=== PATIENT | male | born 1980 | race African-American/Black ===

== ENCOUNTER 2018-01-03 19:25 | Emergency (ER) | payer MEDICAID, OTHER ==
[~2018-01-03] VITALS: Ht 177.8 cm; Wt 70.0 kg
[~2018-01-03 19:25] MED LIST: BENZ1TAB PO; HALO10 PO; HALO100P IM; QUET300 PO; RISP0.5T2 PO; RISP4TAB41 PO; SERO100T PO; Z.0.NO CURRENT MEDS
[2018-01-03 19:44] VITALS: BP 183/102; PULSE 82; RESP 18; TEMP 99.1; O2SAT 100
== END 2018-01-03 21:10 | disposition left against medical advice (07) ==
LOC: NED 19:25
DX: F99 Mental disorder, not otherwise specified (principal)
CPT/HCPCS: 99281

== ENCOUNTER 2018-01-04 02:05 | Emergency (ER) | payer SELFPAY ==
[~2018-01-04] VITALS: Ht 160 cm; Wt 65.0 kg
[2018-01-04 02:09] VITALS: BP 152/85; PULSE 85; RESP 16; TEMP 97.8; O2SAT 98
== END 2018-01-04 05:05 | disposition left against medical advice (07) ==
LOC: NED 02:05
DX: Z00.8 Encounter for other general examination (principal); Z53.21 Procedure and treatment not carried out due to patient leaving prior to being seen by health care provider
CPT/HCPCS: 99281

== ENCOUNTER 2018-01-05 12:36 | Emergency (ER) | payer OTHER ==
--- NOTE | 2018-01-05 14:28 | PD ---
HPI Chief Complaint: Psychiatric Symptoms Time Seen by Provider: 14:03 Travel History International Travel<30 days: No Contact w/Intl Traveler<30days: No Traveled to known affect area: No History of Present Illness HPI 37-year-old male with history of schizophrenia presents to the emergency room under a Peck act initiated by physician at an outside hospital for agitation. Patient denies suicidal or homicidal ideations at this time. Denies hallucinations or delusions. Denies any medical complaints. According to Peck act, patient became agitated at [facility] and was transferred here. He had CBC and CMP performed at [facility] that is unremarkable except for very mild anemia and hypokalemia. PFSH Past Medical History Arthritis: No Asthma: No Autoimmune Disease: No Anxiety: No Depression: No Heart Rhythm Problems: No Cancer: No Cardiovascular Problems: Yes High Cholesterol: No Chemotherapy: No Chest Pain: No Congestive Heart Failure: No COPD: No Cerebrovascular Accident: No Diabetes: No Diminished Hearing: No Endocrine: No GERD: No Genitourinary: No Hiatal Hernia: No Immune Disorder: No Kidney Stones: No Musculoskeletal: No Neurologic: No Psychiatric: Yes (CURRENTLY GETS HALDOL DEC SHOT Q 4 WEEKS) Reproductive: No Respiratory: No Migraines: No Radiation Therapy: No Renal Failure: Yes Schizophrenia: Yes Seizures: No Sickle Cell Disease: No Sleep Apnea: No Thyroid Disease: No Ulcer: No Past Surgical History Abdominal Surgery: No AICD: No Arteriovenous Shunt: No Cardiac Surgery: No Ear Surgery: No Endocrine Surgery: No Eye Surgery: No Genitourinary Surgery: No Gynecologic Surgery: No Insulin Pump: No Joint Replacement: No Oral Surgery: No Pacemaker: No Thoracic Surgery: No Social History Alcohol Use: Yes (STATES RARELY) Tobacco Use: Yes (4 PER DAY) Substance Use: Yes (POT) Allergies-Medications (Allergen,Severity, Reaction): Coded Allergies: haloperidol (Unverified Allergy, Severe, Hallucinations, 01/04/18) ibuprofen (Unverified Allergy, Intermediate, Itching, 01/04/18) Reported Meds & Prescriptions Reported Meds & Active Scripts Active Quetiapine Fumarate 300 Mg Tab 300 Mg PO HS Reported Risperdal (Risperidone) 0.5 Mg Tab 0.5 Mg PO HS Seroquel 100 mg (Quetiapine Fumarate) 100 Mg Tab 100 Mg PO DAILY Cogentin (Benztropine Mesylate) 1 Mg Tab 1 Mg PO BID Haldol (Haloperidol) 10 Mg Tab 10 Mg PO HS Haldol (Decanoate) 100 mg Ampule (Haloperidol Decanoate) 100 Mg/Ml Inj 100 Mg IM Q28D No Current Meds (Miscellaneous Medication) Misc Risperdal (Risperidone) 4 Mg Tab 4 Mg PO HS Review of Systems Except as stated in HPI: all other systems reviewed are Neg Physical Exam Narrative GENERAL: Well-nourished, well-developed male in no acute distress. Afebrile. Ambulatory. SKIN: Focused skin assessment warm/dry. HEAD: Normocephalic. EYES: No scleral icterus. No injection or drainage. NECK: Supple, trachea midline. No JVD or lymphadenopathy. CARDIOVASCULAR: Regular rate and rhythm without murmurs, gallops, or rubs. RESPIRATORY: Breath sounds equal bilaterally. No accessory muscle use. PSYCHIATRIC: No delusional thought processes. No hallucinations. Normal affect. Calm, cooperative. Data Data Last Documented VS Vital Signs Date Time Temp Pulse Resp B/P (MAP) Pulse Ox O2 Delivery O2 Flow Rate FiO2 01/05/18 15:10 98.0 61 16 134/81 (98) 100 Room Air Orders Orders Psych Screen (01/05/18 14:03) Drug Screen, Random Urine (01/05/18 14:03) Diet Regular Basic (01/05/18 Dinner) Ed Discharge Order (01/05/18 18:19) Labs Laboratory Tests Test 01/05/18 17:04 Urine Opiates Screen NEG Urine Barbiturates Screen NEG Urine Amphetamines Screen NEG Urine Benzodiazepines Screen NEG Urine Cocaine Screen POS Urine Cannabinoids Screen POS [facility] Medical Decision Making Medical Screen Exam Complete: Yes Emergency Medical Condition: Yes Medical Record Reviewed: Yes Differential Diagnosis Adjustment disorder, depression, malingering, medication refill, psychosis Narrative Course 37-year-old male with history of schizophrenia presents to the emergency room requesting that occasion refill of Zoloft. Patient was placed under a Peck act at [facility] for agitation. He is calm and cooperative on exam. Denies any medical complaints. Denies homicidal or suicidal ideation. States he just wants Zoloft filled. He had labs performed at [facility] that are unremarkable. Drug screen is ordered and pending. Vital signs stable. Patient is medically cleared for psychiatric evaluation. 01/05/2018 1830: Patient is medically cleared and will be transferred to [facility] for psychiatric evaluation. Diagnosis Primary Impression: Medical clearance for psychiatric admission Referrals: [facility] (Out patient) Additional Instructions: Follow-up per psychiatrist's recommendations. Disposition: 01 DISCHARGE HOME Condition: Stable Chio Vega Jan 05, 2018 14:28
[2018-01-05 15:10] VITALS: BP 134/81; PULSE 61; RESP 16; TEMP 98; O2SAT 100
== END 2018-01-05 19:31 ==
LOC: NEPJ 12:36
DX: F20.9 Schizophrenia, unspecified (principal); F17.200 Nicotine dependence, unspecified, uncomplicated; Z79.899 Other long term (current) drug therapy
CPT/HCPCS: 80307; 99285

== ENCOUNTER 2018-01-08 15:26 | Emergency (ER) | payer SELFPAY ==
[~2018-01-08] VITALS: Ht 172.7 cm; Wt 70.0 kg
[2018-01-08 16:39] VITALS: BP 140/85; PULSE 82; RESP 16; TEMP 98.4; O2SAT 99
== END 2018-01-08 20:27 | disposition left against medical advice (07) ==
LOC: NED 15:26
DX: Z03.89 Encounter for observation for other suspected diseases and conditions ruled out (principal)
CPT/HCPCS: 99281

== ENCOUNTER 2018-01-09 02:27 | Emergency (ER) | payer SELFPAY ==
[~2018-01-09] VITALS: Ht 185.4 cm; Wt 85.0 kg
[2018-01-09 02:46] VITALS: BP 160/78; PULSE 70; RESP 16; TEMP 97.4; O2SAT 100
--- NOTE | 2018-01-09 04:06 | PD ---
HPI Chief Complaint: Hypertension Time Seen by Provider: 03:45 Travel History International Travel<30 days: No Contact w/Intl Traveler<30days: No Traveled to known affect area: No History of Present Illness HPI Patient is a 37-year-old male with a history of schizoaffective disorder presents emergency department for evaluation of elevated blood pressure. Patient states been taking his blood pressure at home has been asymptomatic and thinks he might need blood pressure pills. He has not discussed this with his primary care physician and she does not have a regular primary care physician. He denies any chest pain shortness of breath abdominal pain nausea vomiting diarrhea. On my initial evaluation patient sleeping soundly in a prone position in the ER stretcher, easily awoken. Duration of symptoms is unknown, severity is moderate, associated signs and symptoms and context as above. PFSH Past Medical History Arthritis: No Asthma: No Autoimmune Disease: No Anxiety: No Depression: No Heart Rhythm Problems: No Cancer: No Cardiovascular Problems: Yes High Cholesterol: No Chemotherapy: No Chest Pain: No Congestive Heart Failure: No COPD: No Cerebrovascular Accident: No Diabetes: No Diminished Hearing: No Endocrine: No GERD: No Genitourinary: No Hiatal Hernia: No Immune Disorder: No Kidney Stones: No Musculoskeletal: No Neurologic: No Psychiatric: Yes (CURRENTLY GETS HALDOL DEC SHOT Q 4 WEEKS) Reproductive: No Respiratory: No Migraines: No Radiation Therapy: No Renal Failure: Yes Schizophrenia: Yes Seizures: No Sickle Cell Disease: No Sleep Apnea: No Thyroid Disease: No Ulcer: No Tetanus Vaccination: Unknown Influenza Vaccination: No Past Surgical History Surgical History: No Previous Surgery Abdominal Surgery: No AICD: No Arteriovenous Shunt: No Cardiac Surgery: No Ear Surgery: No Endocrine Surgery: No Eye Surgery: No Genitourinary Surgery: No Gynecologic Surgery: No Insulin Pump: No Joint Replacement: No Oral Surgery: No Pacemaker: No Thoracic Surgery: No Social History Alcohol Use: Yes (STATES RARELY) Tobacco Use: Yes (4 PER DAY) Substance Use: Yes Allergies-Medications (Allergen,Severity, Reaction): Coded Allergies: haloperidol (Unverified Allergy, Severe, Hallucinations, 01/12/18) ibuprofen (Unverified Allergy, Intermediate, Itching, 01/12/18) Reported Meds & Prescriptions Reported Meds & Active Scripts Active Quetiapine Fumarate 300 Mg Tab 300 Mg PO HS Reported Risperdal (Risperidone) 0.5 Mg Tab 0.5 Mg PO HS Seroquel 100 mg (Quetiapine Fumarate) 100 Mg Tab 100 Mg PO DAILY Cogentin (Benztropine Mesylate) 1 Mg Tab 1 Mg PO BID Haldol (Haloperidol) 10 Mg Tab 10 Mg PO HS Haldol (Decanoate) 100 mg Ampule (Haloperidol Decanoate) 100 Mg/Ml Inj 100 Mg IM Q28D No Current Meds (Miscellaneous Medication) Misc Risperdal (Risperidone) 4 Mg Tab 4 Mg PO HS Review of Systems Except as stated in HPI: all other systems reviewed are Neg Physical Exam Narrative GENERAL: Well-developed well-nourished in no obvious distress SKIN: Focused skin assessment warm/dry. HEAD: Atraumatic. Normocephalic. EYES: Pupils equal and round. No scleral icterus. No injection or drainage. ENT: No nasal bleeding or discharge. Mucous membranes pink and moist. NECK: Trachea midline. No JVD. CARDIOVASCULAR: Regular rate and rhythm. No murmur appreciated. RESPIRATORY: No accessory muscle use. Clear to auscultation. Breath sounds equal bilaterally. GASTROINTESTINAL: Abdomen soft, non-tender, nondistended. Hepatic and splenic margins not palpable. MUSCULOSKELETAL: No obvious deformities. No clubbing. No cyanosis. No edema. NEUROLOGICAL: Awake and alert. No obvious cranial nerve deficits. Motor grossly within normal limits. Normal speech. PSYCHIATRIC: Somewhat flat affect, normal mood. Denies suicidal or homicidal ideation. Somewhat withdrawn but provides his own history peer Data Data Last Documented VS Orders Orders Ed Discharge Order (01/09/18 04:06) MDM Medical Decision Making Medical Screen Exam Complete: Yes Emergency Medical Condition: Yes Differential Diagnosis Asymptomatic elevated blood pressure, hypertensive emergency unlikely, hypertensive urgency unlikely Narrative Course Patient room to the emergency department, moderately elevated blood pressure 160 /78, no symptoms to suggest organ failure, there is no indication further workup of this patient this time. Discussed need follow-up with his daily health clinic. He is stable for discharge Diagnosis Primary Impression: Asymptomatic hypertension Referrals: [facility] Disposition: 01 DISCHARGE HOME Condition: Stable Gregorio Van MD Jan 09, 2018 04:06
== END 2018-01-09 04:42 | disposition home or self-care (01) ==
LOC: NEPE 02:27
DX: I10 Essential (primary) hypertension (principal); F25.9 Schizoaffective disorder, unspecified; N19 Unspecified kidney failure; F20.9 Schizophrenia, unspecified; F17.200 Nicotine dependence, unspecified, uncomplicated; Z79.899 Other long term (current) drug therapy; Z88.6 Allergy status to analgesic agent; Z88.8 Allergy status to other drugs, medicaments and biological substances
CPT/HCPCS: 99281

== ENCOUNTER 2018-01-10 11:45 | Emergency (ER) | payer SELFPAY ==
[~2018-01-10] VITALS: Ht 188 cm; Wt 80.0 kg
[2018-01-10 12:00] VITALS: BP 152/99; PULSE 83; RESP 20; TEMP 97.3; O2SAT 100
--- NOTE | 2018-01-10 13:17 | PD ---
HPI Chief Complaint: Injury Time Seen by Provider: 13:02 Travel History International Travel<30 days: No Contact w/Intl Traveler<30days: No Traveled to known affect area: No History of Present Illness HPI 37 year old male presents to the emergency department complaining of pain to the top of his right foot that started today because "I walked too much". Patient denies any injury. Patient is verbally abusive throughout my exam. Patient states that his pain is 10/10 and he needs an Kamran bandage and ibuprofen. He has not tried anything [id number] for his pain. Patient denies any exacerbating or alleviating factors. Mild severity. History Past Medical Histgory Hx Cancer: No Hx Chemotherapy: No Hx Radiation Therapy: No Social History Alcohol Use: Yes (STATES RARELY) Tobacco Use: Yes (4 PER DAY) Allergies-Medications (Allergen,Severity, Reaction): Coded Allergies: haloperidol (Unverified Allergy, Severe, Hallucinations, 01/10/18) ibuprofen (Unverified Allergy, Intermediate, Itching, 01/10/18) Reported Meds & Prescriptions Reported Meds & Active Scripts Active Quetiapine Fumarate 300 Mg Tab 300 Mg PO HS Reported Risperdal (Risperidone) 0.5 Mg Tab 0.5 Mg PO HS Seroquel 100 mg (Quetiapine Fumarate) 100 Mg Tab 100 Mg PO DAILY Cogentin (Benztropine Mesylate) 1 Mg Tab 1 Mg PO BID Haldol (Haloperidol) 10 Mg Tab 10 Mg PO HS Haldol (Decanoate) 100 mg Ampule (Haloperidol Decanoate) 100 Mg/Ml Inj 100 Mg IM Q28D No Current Meds (Miscellaneous Medication) Misc Risperdal (Risperidone) 4 Mg Tab 4 Mg PO HS Review of Systems Except as stated in HPI: all other systems reviewed are Neg Physical Exam Exam Limitations: Uncooperative Narrative GENERAL: Well-nourished, well-developed male patient, afebrile. SKIN: Focused skin assessment warm/dry. No erythema or warmth. No swelling or abnormality to the right foot. HEAD: Normocephalic. Atraumatic. EYES: No scleral icterus. No injection or drainage. NECK: Supple, trachea midline. No JVD or lymphadenopathy. CARDIOVASCULAR: Right pedal pulse 2+. RESPIRATORY: No accessory muscle use. MUSCULOSKELETAL: No cyanosis, or edema. Data Data Last Documented VS Vital Signs Date Time Temp Pulse Resp B/P (MAP) Pulse Ox O2 Delivery O2 Flow Rate FiO2 01/10/18 12:00 97.3 83 20 152/99 (116) 100 MDM Medical Screen Exam Complete: Yes Emergency Medical Condition: No Differential Diagnosis muscle strain Narrative Course 37-year-old male presents to the emergency department for evaluation of right foot pain from "walking too much". He denies any injury. No abnormality is found on exam. He has no tenderness to palpation. Patient is a very verbally abusive throughout my exam, calling me an "ugly bitch". The patient becomes agitated and leaves when I told him that a financial counselor would come speak to him. A medical screening exam was performed: At the time of evaluation the presenting medical condition was determined not to be of an emergent nature. The patient was given the option of receiving additional care, but declined. Patient was given options for additional community resources from which to obtain care. The Patient Has Been advised to seek medical attention for their presenting complaint. The patient has been advised to return to the ER at any time if an emergent condition develops. Primary Impression: Encounter for medical screening examination Condition: Stable Aaliyah Rand Jan 10, 2018 13:17
== END 2018-01-10 13:17 | disposition left against medical advice (07) ==
LOC: NEPD 11:45
DX: M79.671 Pain in right foot (principal)
CPT/HCPCS: 99281

== ENCOUNTER 2018-01-12 22:33 | Emergency (ER) | payer SELFPAY ==
[~2018-01-12] VITALS: Ht 185.4 cm; Wt 80.0 kg
[2018-01-12 23:51] VITALS: BP 163/93; PULSE 100; RESP 16; TEMP 98.4; O2SAT 99
--- NOTE | 2018-01-13 00:27 | RADRPT ---
EXAM DATE/TIME: 01/13/2018 00:18 [facility] COMPARISON: No previous studies available for comparison. INDICATIONS : Chest pain. MEDICAL HISTORY : None. SURGICAL HISTORY : None. ENCOUNTER: Initial ACUITY: 1 day PAIN SCORE: 0/10 LOCATION: Bilateral chest FINDINGS: PA and lateral views of the chest demonstrate the lungs to be symmetrically aerated without evidence of mass, infiltrate or effusion. The cardiomediastinal contours are unremarkable. Osseous structure s are intact. CONCLUSION: No acute cardiopulmonary disease. Raghav Russell MD on January 13, 2018 at 0:26 Board Certified Radiologist. This report was verified electronically.
[2018-01-13 00:30] LABS: BASOPHIL % 0.4 % (0.0-2.0); EOSINOPHIL # 0.2 TH/MM3 (0-0.4); EOSINOPHIL % 3.7 % (0.0-4.0); HEMATOCRIT 31.1 % (39.0-51.0); HEMOGLOBIN 10.8 GM/DL (13.0-17.0); LYMPH % 43.5 % (9.0-44.0); LYMPHOCYTE # 2.1 TH/MM3 (1.0-4.8); MEAN CELL VOLUME 87.7 FL (80.0-100.0); MEAN CORPUSCULAR HEMOGLOBIN 30.5 PG (27.0-34.0); MEAN CORPUSCULAR HGB CONC 34.8 % (32.0-36.0); MEAN PLATELET VOLUME 7.6 FL (7.0-11.0); MONO % 10.2 % (0.0-8.0); MONOCYTE # 0.5 TH/MM3 (0-0.9); NEUT % 42.2 % (16.0-70.0); PLATELET COUNT 288 TH/MM3 (150-450); RED BLOOD COUNT 3.55 MIL/MM3 (4.50-5.90); RED CELL DISTRIBUTION WIDTH 14.4 % (11.6-17.2); WHITE BLOOD COUNT 4.7 TH/MM3 (4.0-11.0)
[2018-01-13 00:50] LABS: BICARBONATE 25.8 MEQ/L (21.0-32.0); BLOOD UREA NITROGEN 12 MG/DL (7-18); CALCIUM 8.5 MG/DL (8.5-10.1); CHLORIDE 111 MEQ/L (98-107); CREATININE 0.85 MG/DL (0.60-1.30); GLOMERULAR FILTRATION RATE 124 ML/MIN (>89); GLUCOSE,RANDOM 110 MG/DL (74-106); SODIUM (NA) 144 MEQ/L (136-145)
[2018-01-13 01:04] LABS: TROPONIN I LESS THAN 0.02 NG/ML (0.02-0.05)
--- NOTE | 2018-01-13 20:33 | EKG ---
Date Performed: 01/13/2018 Time Performed: 00:04:42 PTAGE: 37 years EKG: Sinus rhythm WITH SINUS ARRHYTHMIA WITH SHORT OK INTERVAL MODERATE VOLTAGE CRITERIA FOR LVH, CONSIDER NORMAL VARI ANT MODERATE T-WAVE ABNORMALITY, CONSIDER ANTERIOR ISCHEMIA ABNORMAL ECG PREVIOUS TRACING : 12/04/2016 10.29 Since the previous tracing, T wave abnormalities are new DOCTOR: Dmitry Ortiz Interpretating Date/Time 01/13/2018 20:31:53
== END 2018-01-13 08:32 | disposition left against medical advice (07) ==
LOC: NED 22:33
DX: R07.9 Chest pain, unspecified (principal)
CPT/HCPCS: 71046; 80048; 82550; 82552; 84484; 85025; 93005; 99281

== ENCOUNTER 2018-01-18 10:16 | Emergency (ER) | payer SELFPAY ==
[2018-01-18 11:34] VITALS: BP 175/104; PULSE 70; RESP 16; TEMP 98.5; O2SAT 97
--- NOTE | 2018-01-18 11:42 | PD ---
HPI Chief Complaint: Medical Clearance Time Seen by Provider: 11:34 Travel History International Travel<30 days: No Contact w/Intl Traveler<30days: No Traveled to known affect area: No History of Present Illness HPI 37-year-old male presents emergency department requesting his blood pressure to be checked. Has no history of hypertension. Has no chest pain or tightness. No difficulty breathing. No headache or blurred vision. No focal deficits weakness. No other symptoms to report. PFSH Past Medical History Arthritis: No Asthma: No Autoimmune Disease: No Anxiety: No Depression: No Heart Rhythm Problems: No Cancer: No Cardiovascular Problems: Yes High Cholesterol: No Chemotherapy: No Chest Pain: No Congestive Heart Failure: No COPD: No Cerebrovascular Accident: No Diabetes: No Diminished Hearing: No Endocrine: No GERD: No Genitourinary: No Hiatal Hernia: No Immune Disorder: No Kidney Stones: No Musculoskeletal: No Neurologic: No Psychiatric: Yes (CURRENTLY GETS HALDOL DEC SHOT Q 4 WEEKS) Reproductive: No Respiratory: No Migraines: No Radiation Therapy: No Renal Failure: Yes Schizophrenia: Yes Seizures: No Sickle Cell Disease: No Sleep Apnea: No Thyroid Disease: No Ulcer: No Past Surgical History Abdominal Surgery: No AICD: No Arteriovenous Shunt: No Cardiac Surgery: No Ear Surgery: No Endocrine Surgery: No Eye Surgery: No Genitourinary Surgery: No Gynecologic Surgery: No Insulin Pump: No Joint Replacement: No Oral Surgery: No Pacemaker: No Thoracic Surgery: No Social History Alcohol Use: Yes (STATES RARELY) Tobacco Use: Yes (4 PER DAY) Substance Use: Yes (pt states no drugs or ETOH for 2 months) Allergies-Medications (Allergen,Severity, Reaction): Coded Allergies: haloperidol (Unverified Allergy, Severe, Hallucinations, 01/12/18) ibuprofen (Unverified Allergy, Intermediate, Itching, 01/12/18) Reported Meds & Prescriptions Reported Meds & Active Scripts Active Quetiapine Fumarate 300 Mg Tab 300 Mg PO HS Reported Risperdal (Risperidone) 0.5 Mg Tab 0.5 Mg PO HS Seroquel 100 mg (Quetiapine Fumarate) 100 Mg Tab 100 Mg PO DAILY Cogentin (Benztropine Mesylate) 1 Mg Tab 1 Mg PO BID Haldol (Haloperidol) 10 Mg Tab 10 Mg PO HS Haldol (Decanoate) 100 mg Ampule (Haloperidol Decanoate) 100 Mg/Ml Inj 100 Mg IM Q28D No Current Meds (Miscellaneous Medication) Misc Risperdal (Risperidone) 4 Mg Tab 4 Mg PO HS Review of Systems Except as stated in HPI: all other systems reviewed are Neg Physical Exam Narrative This is a 37-year-old male with a bizarre affect but appears nontoxic and in no acute distress. He is ambulatory with a non-ataxic gait. He has even respirations. Normal heart rate. Moves all extremities. Speaks to me clearly. Data Data Last Documented VS Vital Signs Date Time Temp Pulse Resp B/P (MAP) Pulse Ox O2 Delivery O2 Flow Rate FiO2 01/18/18 11:34 98.5 70 16 175/104 (127) 97 MDM Medical Decision Making Medical Screen Exam Complete: Yes Emergency Medical Condition: Yes Medical Record Reviewed: Yes Differential Diagnosis Normal examination versus hypertension versus electrolyte abnormality versus psychiatric etiology Narrative Course 37-year-old male presents emergency department to have his blood pressure checked. Following vital signs, prior to being able to discharge the patient, he does not want to have anything to do with it and chooses to leave. AMA: The risks of leaving against medical advice without further evaluation treatment were discussed with the patient. These risks include cardiac dysfunction, cardiac dysrhythmia, possible heart attack, possible stroke or . The patient indicated understanding of these risks and appeared to have the capacity to make this decision. Diagnosis Primary Impression: Blood pressure check Disposition: 07 AGAINST MEDICAL ADVICE Condition: Stable Janie Oliveira RUDY Jan 18, 2018 11:42
== END 2018-01-18 19:14 | disposition left against medical advice (07) ==
LOC: NED 10:16
DX: Z00.00 Encounter for general adult medical examination without abnormal findings (principal)
CPT/HCPCS: 99281

== ENCOUNTER 2018-01-20 21:52 | Emergency (ER) | payer SELFPAY ==
[~2018-01-20] VITALS: Ht 182.9 cm; Wt 73.0 kg
[2018-01-20 22:55] VITALS: BP 173/107; PULSE 68; RESP 18; TEMP 98.2; O2SAT 100
--- NOTE | 2018-01-21 02:29 | PD ---
HPI Chief Complaint: Injury Time Seen by Provider: 01:20 Travel History International Travel<30 days: No Contact w/Intl Traveler<30days: No Traveled to known affect area: No History of Present Illness HPI 37-year-old male complains of right ankle pain. He played basketball today and suffered a hyperinversion injury. Ambulation has been painful. No other injury reported. Onset sudden. Timing constant. Pain is worse with palpation. PFSH Past Medical History Arthritis: No Asthma: No Autoimmune Disease: No Anxiety: No Depression: No Heart Rhythm Problems: No Cancer: No Cardiovascular Problems: Yes High Cholesterol: No Chemotherapy: No Chest Pain: No Congestive Heart Failure: No COPD: No Cerebrovascular Accident: No Diabetes: No Diminished Hearing: No Endocrine: No GERD: No Genitourinary: No Hiatal Hernia: No Immune Disorder: No Kidney Stones: No Musculoskeletal: No Neurologic: No Psychiatric: Yes Reproductive: No Respiratory: No Migraines: No Radiation Therapy: No Renal Failure: Yes Schizophrenia: Yes Seizures: No Sickle Cell Disease: No Sleep Apnea: No Thyroid Disease: No Ulcer: No Past Surgical History Abdominal Surgery: No AICD: No Arteriovenous Shunt: No Cardiac Surgery: No Ear Surgery: No Endocrine Surgery: No Eye Surgery: No Genitourinary Surgery: No Gynecologic Surgery: No Insulin Pump: No Joint Replacement: No Oral Surgery: No Pacemaker: No Thoracic Surgery: No Social History Alcohol Use: No (DENIES) Tobacco Use: Yes (10/29 PPD) Substance Use: No (DENIES) Allergies-Medications (Allergen,Severity, Reaction): Coded Allergies: haloperidol (Unverified Allergy, Severe, Hallucinations, 01/20/18) ibuprofen (Unverified Allergy, Intermediate, Itching, 01/20/18) Reported Meds & Prescriptions Reported Meds & Active Scripts Active Quetiapine Fumarate 300 Mg Tab 300 Mg PO HS Reported Risperdal (Risperidone) 0.5 Mg Tab 0.5 Mg PO HS Seroquel 100 mg (Quetiapine Fumarate) 100 Mg Tab 100 Mg PO DAILY Cogentin (Benztropine Mesylate) 1 Mg Tab 1 Mg PO BID Haldol (Haloperidol) 10 Mg Tab 10 Mg PO HS Haldol (Decanoate) 100 mg Ampule (Haloperidol Decanoate) 100 Mg/Ml Inj 100 Mg IM Q28D No Current Meds (Miscellaneous Medication) Misc Risperdal (Risperidone) 4 Mg Tab 4 Mg PO HS Review of Systems General / Constitutional: No: Fever Eyes: No: Drainage HENT: No: Sore Throat Cardiovascular: No: Irregular Rhythm Respiratory: No: Wheezing Physical Exam Narrative GENERAL: 37-year-old male no acute distress SKIN: Warm and dry. Vital Signs Date Time Temp Pulse Resp B/P (MAP) Pulse Ox O2 Delivery O2 Flow Rate FiO2 01/20/18 22:55 98.2 68 18 173/107 (129) 100 HEAD: Normocephalic. EYES: No scleral icterus. No injection or drainage. NECK: Supple, trachea midline. No JVD or lymphadenopathy. CARDIOVASCULAR: Regular rate and rhythm without murmurs, gallops, or rubs. RESPIRATORY: Breath sounds equal bilaterally. No accessory muscle use. GASTROINTESTINAL: Abdomen soft, non-tender, nondistended. MUSCULOSKELETAL: No cyanosis, or edema. Tenderness about the ankle mortise on the right side. BACK: Nontender without obvious deformity. No CVA tenderness. Data Data Last Documented VS Vital Signs Date Time Temp Pulse Resp B/P (MAP) Pulse Ox O2 Delivery O2 Flow Rate FiO2 01/20/18 22:55 98.2 68 18 173/107 (129) 100 Orders Orders Ankle, Complete ([id number]) (01/21/18 ) Ice/Cold Pack (01/21/18 01:31) [facility] Medical Decision Making Medical Screen Exam Complete: Yes Emergency Medical Condition: Yes Medical Record Reviewed: Yes Differential Diagnosis Fracture dislocation contusion Narrative Course Plain film unremarkable Patient ready for discharge. Diagnosis Primary Impression: Right ankle injury Qualified Codes: S99.911A - Unspecified injury of right ankle, initial encounter Referrals: Orthopaedic Surgeon 2 days Med/Other Pt SpecificInfo: No Change to Meds Disposition: 01 DISCHARGE HOME Condition: Stable Regulo Monsivais MD Jan 21, 2018 02:29
--- NOTE | 2018-01-21 02:33 | RADRPT ---
EXAM DATE/TIME: 01/21/2018 01:57 [facility] COMPARISON: No previous studies available for comparison. INDICATIONS : Right ankle pain from a basketball injury. MEDICAL HISTORY : None. SURGICAL HISTORY : None. ENCOUNTER: Initial ACUITY: 1 day PAIN SCORE: 8/10 LOCATION: Right ankle FINDINGS: Three view exam was performed of the right ankle. The bony structures are in normal alignment. No e vidence of fracture, dislocation, or soft tissue swelling. The ankle mortise is intact. No radiopaq ue foreign bodies are seen. Bony mineralization is normal. CONCLUSION: No acute fracture. Amilcar Gallegos MD on January 21, 2018 at 2:32 Board Certified Radiologist. This report was verified electronically.
== END 2018-01-21 02:50 | disposition home or self-care (01) ==
LOC: NEPD 21:52
DX: S99.911A Unspecified injury of right ankle, initial encounter (principal); F17.200 Nicotine dependence, unspecified, uncomplicated; X50.9XXA Other and unspecified overexertion or strenuous movements or postures, initial encounter; Y93.67 Activity, basketball
CPT/HCPCS: 73610; 99283

== ENCOUNTER 2018-01-23 12:21 | Emergency (ER) | payer SELFPAY ==
[~2018-01-23] VITALS: Ht 180.3 cm; Wt 84.0 kg
[2018-01-23 12:25] VITALS: BP 161/95; PULSE 101; RESP 18; TEMP 98; O2SAT 97
[2018-01-23] MEDS ORDERED: LIDOCAINE HCL 1% 50 ML VIAL INFIL ONE (13:00)
[2018-01-23] MEDS ORDERED: TETANUS/DIPHTHERIA TOXOID ADULT 0.5 ML VIAL IM ONE (13:00)
[2018-01-23] MEDS ORDERED: BACT800T5 PO (13:31)
--- NOTE | 2018-01-23 13:31 | PD ---
HPI Chief Complaint: Laceration/Skin Injury Time Seen by Provider: 12:37 Travel History International Travel<30 days: No Contact w/Intl Traveler<30days: No Traveled to known affect area: No History of Present Illness HPI 37-year-old male presents to the emergency department with complaint of laceration to his right lower lip that occurred last night from shaving. Although the wound appears older than from last night. Denies drainage from the wound site. Denies fever, vomiting. Says he needs his tetanus updated. Rates pain 10/10. Has not taken any medication or tried any treatments to alleviate his symptoms. No primary care provider. Allergies to Haldol and ibuprofen. Denies significant past medical history. Has no other medical complaints. No other modifying factors or associated signs and symptoms. PFSH Past Medical History Arthritis: No Asthma: No Autoimmune Disease: No Anxiety: No Depression: No Heart Rhythm Problems: No Cancer: No Cardiovascular Problems: Yes High Cholesterol: No Chemotherapy: No Chest Pain: No Congestive Heart Failure: No COPD: No Cerebrovascular Accident: No Diabetes: No Diminished Hearing: No Endocrine: No GERD: No Genitourinary: No Hiatal Hernia: No Immune Disorder: No Kidney Stones: No Musculoskeletal: No Neurologic: No Psychiatric: Yes Reproductive: No Respiratory: No Migraines: No Radiation Therapy: No Renal Failure: Yes Schizophrenia: Yes Seizures: No Sickle Cell Disease: No Sleep Apnea: No Thyroid Disease: No Ulcer: No Tetanus Vaccination: Unknown Past Surgical History Abdominal Surgery: No AICD: No Arteriovenous Shunt: No Cardiac Surgery: No Ear Surgery: No Endocrine Surgery: No Eye Surgery: No Genitourinary Surgery: No Gynecologic Surgery: No Insulin Pump: No Joint Replacement: No Oral Surgery: No Pacemaker: No Thoracic Surgery: No Social History Alcohol Use: No (DENIES) Tobacco Use: No (10/29 PPD) Substance Use: No (DENIES) Allergies-Medications (Allergen,Severity, Reaction): Coded Allergies: haloperidol (Unverified Allergy, Severe, Hallucinations, 01/23/18) ibuprofen (Unverified Allergy, Intermediate, Itching, 01/23/18) Reported Meds & Prescriptions Reported Meds & Active Scripts Active Bactrim DS (Sulfamethoxazole-Trimethoprim) 800-160 Mg Tab 1 Tab PO BID 7 Days Review of Systems Except as stated in HPI: all other systems reviewed are Neg Physical Exam Narrative GENERAL: Well-nourished, well-developed black male patient, in no acute distress SKIN: Warm and dry. Right lateral lower lip with skin avulsion in a horseshoe shape that it was approximately 2.5cm; the laceration is dry and appears to be healing by secondary intention; there are 2 small cuts to the lower mid lip that are also healing by secondary intention; lower lip with minimal edema; without erythema; no drainage. No signs of infection. Lacerations do not appear to be lacerations obtained by shaving. HEAD: Atraumatic. Normocephalic. EYES: Pupils equal and round. No scleral icterus. No injection or drainage. ENT: Mucosa pink and moist. Airway patent. NECK: Trachea midline. CARDIOVASCULAR: Regular rate. RESPIRATORY: No accessory muscle use. GASTROINTESTINAL: Flat. MUSCULOSKELETAL: No obvious deformities. No clubbing. No cyanosis. No edema. NEUROLOGICAL: Awake and alert. Oriented 3. No obvious cranial nerve deficits. Motor grossly within normal limits. Normal speech. PSYCHIATRIC: Appropriate mood and affect; insight and judgment normal. Data Data Last Documented VS Vital Signs Date Time Temp Pulse Resp B/P (MAP) Pulse Ox O2 Delivery O2 Flow Rate FiO2 01/23/18 12:47 18 01/23/18 12:25 98.0 101 161/95 (117) 97 Orders Orders Tetanus/Diphtheria Tox Adult (Tetanus/Di (01/23/18 13:00) Lidocaine 1% Inj (50 Ml) (Xylocaine 1% I (01/23/18 13:00) MDM Medical Decision Making Medical Screen Exam Complete: Yes Emergency Medical Condition: Yes Medical Record Reviewed: Yes Differential Diagnosis Lip laceration, tetanus update, wound infection, medical clearance Narrative Course 37-year-old male with lower lip laceration that is healing by secondary intention. The lacerations of the lower lip do not appear to be shaving lacerations even though this is what the patient says they are from. There is a piece of skin that is avulsed. I will close the avulsed wound loosely. The other 2 small lacerations will be left open to heal by secondary intention. I will prescribe antibiotics for home. Tetanus updated in the ER. Bactrim prescribed for home. See my procedure note for laceration repair. Instructed patient to follow up with primary care provider. Patient verbalizes understanding and agreement with treatment plan. Patient is medically cleared and stable for discharge. Discussed reasons to return to the emergency department. Patient agrees with treatment plan. The patients vital signs are stable and the patient is stable for outpatient follow-up and treatment. Patient discharged home, stable and in no acute distress. Procedures Procedure Narrative LACERATION LOCATION: Right lower lateral lip LENGTH: 2.5 cm horseshoe shaped and with skin avulsed NUMBER OF STITCHES/LUCIUS: 4 simple interrupted sutures loosely placed REPAIR: The area of the laceration was prepped with Betadine and sterilely draped. The laceration was infiltrated with 1% lidocaine. The wound was copiously irrigated and explored without evidence of foreign body, tendon injury or neurovascular injury. The wound was closed using 5-0 Prolene. This was a single layer repair. A sterile dressing was applied. The patient was advised to keep the dressing clean and dry. Patient tolerated the procedure well. Diagnosis Primary Impression: Lip laceration Qualified Codes: S01.511A - Laceration without foreign body of lip, initial encounter Referrals: [facility] Primary Care Physician Patient Instructions: Care For Your Stitches (ED), Facial Laceration (ED), General Instructions Additional Instructions: Keep area clean and dry Limit lower lip activity to decrease risk of sutures coming undone Ibuprofen or Tylenol as directed and as needed for pain and inflammation Ice pack to area as needed to decrease pain Return to the emergency department in 5-7 days for suture removal Follow up with primary care provider within 2-4 days Return to the emergency department immediately with worsening of symptoms Med/Other Pt SpecificInfo: Prescription(s) given Scripts Sulfamethoxazole-Trimethoprim (Bactrim DS) 800-160 Mg Tab 1 TAB PO BID for Infection for 7 Days, #14 TAB 0 Refills Prov: Stephanie Kan 01/23/18 Disposition: 01 DISCHARGE HOME Condition: Stable Stephanie Kan Jan 23, 2018 13:31
== END 2018-01-23 15:10 | disposition home or self-care (01) ==
LOC: NEPD 12:21
DX: S01.511A Laceration without foreign body of lip, initial encounter (principal); W45.8XXA Other foreign body or object entering through skin, initial encounter; F20.9 Schizophrenia, unspecified; Z23 Encounter for immunization
CPT/HCPCS: 12011; 90471; 90714

== ENCOUNTER 2018-01-24 08:27 | Emergency (ER) | payer SELFPAY ==
[~2018-01-24] VITALS: Ht 177.8 cm; Wt 80.0 kg
[~2018-01-24 08:27] MED LIST changes: +BACT800T5 PO
[2018-01-24 08:34] VITALS: BP 159/83; PULSE 75; RESP 17; TEMP 98.4; O2SAT 100
--- NOTE | 2018-01-24 08:59 | PD ---
HPI Chief Complaint: Laceration/Skin Injury Time Seen by Provider: 08:49 Travel History International Travel<30 days: No Contact w/Intl Traveler<30days: No Traveled to known affect area: No History of Present Illness HPI 37-year-old male presents to emergency department requesting Neosporin and a Band-Aid for his lip laceration. I saw this patient in the emergency department and repaired his lip laceration. I gave him a prescription for Bactrim which he says he has not filled. Symptoms are mild in severity. No known aggravating or relieving factors. Has no other medical complaints. No other modifying factors or associated signs and symptoms. History Past Medical Histgory Hx Cancer: No Hx Chemotherapy: No Hx Radiation Therapy: No Social History Alcohol Use: No (DENIES) Tobacco Use: No (10/29 PPD) Allergies-Medications (Allergen,Severity, Reaction): Coded Allergies: haloperidol (Unverified Allergy, Severe, Hallucinations, 01/23/18) ibuprofen (Unverified Allergy, Intermediate, Itching, 01/23/18) Reported Meds & Prescriptions Reported Meds & Active Scripts Active Bactrim DS (Sulfamethoxazole-Trimethoprim) 800-160 Mg Tab 1 Tab PO BID 7 Days Review of Systems Except as stated in HPI: all other systems reviewed are Neg Physical Exam Narrative GENERAL: Well-nourished, well-developed black male patient, in no acute distress SKIN: Warm and dry. Right lower lateral lip with laceration that is well approximated with sutures intact and 2 other small cuts that are healing by secondary intention; all without erythema or drainage. Lip with minimal edema. No signs of infection. HEAD: Atraumatic. Normocephalic. EYES: Pupils equal and round. No scleral icterus. No injection or drainage. ENT: Mucosa pink and moist. Airway patent. NECK: Trachea midline. CARDIOVASCULAR: Regular rate. RESPIRATORY: No accessory muscle use. GASTROINTESTINAL: Flat. MUSCULOSKELETAL: No obvious deformities. No clubbing. No cyanosis. No edema. NEUROLOGICAL: Awake and alert. Oriented 3. No obvious cranial nerve deficits. Motor grossly within normal limits. Normal speech. PSYCHIATRIC: Appropriate mood and affect; insight and judgment normal. Data Data Last Documented VS Vital Signs Date Time Temp Pulse Resp B/P (MAP) Pulse Ox O2 Delivery O2 Flow Rate FiO2 01/24/18 08:34 98.4 75 17 159/83 (108) 100 [facility] Medical Screen Exam Complete: Yes Emergency Medical Condition: No Differential Diagnosis Wound care, wound recheck, malingering Narrative Course Vital signs are stable and the patient is stable for outpatient follow-up and treatment. The patient has no urgent or emergent medical complaints. There is no emergent or urgent medical need at this time. I instructed the patient to follow up with their primary care provider. A medical screening exam was performed: At the time of evaluation the presenting medical condition was determined not to be of an emergent nature. The patient was given the option of receiving additional care, but declined. Patient was given options for additional community resources from which to obtain care. The Patient Has Been advised to seek medical attention for their presenting complaint. The patient has been advised to return to the ER at any time if an emergent condition develops. Primary Impression: Encounter for medical screening examination Condition: Stable Stephanie Kan CLASSROOM COORDINATOR Jan 24, 2018 08:59
== END 2018-01-24 09:42 | disposition left against medical advice (07) ==
LOC: NEPD 08:27
DX: S01.511A Laceration without foreign body of lip, initial encounter (principal); F17.200 Nicotine dependence, unspecified, uncomplicated; X58.XXXA Exposure to other specified factors, initial encounter
CPT/HCPCS: 99281

== ENCOUNTER 2018-02-08 00:11 | Emergency (ER) | payer SELFPAY ==
[~2018-02-08] VITALS: Ht 167.6 cm; Wt 91.0 kg
[~2018-02-08 00:11] MED LIST changes: -BENZ1TAB PO; -HALO10 PO; -HALO100P IM; -QUET300 PO; -RISP0.5T2 PO; -RISP4TAB41 PO; -SERO100T PO; -Z.0.NO CURRENT MEDS
[2018-02-08 00:22] VITALS: BP 146/93; PULSE 71; RESP 16; TEMP 98.4; O2SAT 100
[2018-02-08 00:30] VITALS: BP 151/103; PULSE 72; RESP 18; O2SAT 100
[2018-02-08] MEDS ORDERED: PENI500T PO (00:44)
[2018-02-08] MEDS ORDERED: PENICILLIN V POTASSIUM 500 MG TAB PO ONE (00:45)
[2018-02-08] MEDS ORDERED: ACETAMINOPHEN 325 MG TAB PO ONE (00:45)
--- NOTE | 2018-02-08 00:45 | PD ---
HPI Chief Complaint: Oral / Dental Pain or Problem Time Seen by Provider: 00:32 Travel History International Travel<30 days: No Contact w/Intl Traveler<30days: No Traveled to known affect area: No History of Present Illness HPI 37 years old male complains of dental pain and also elevated blood pressure. Patient states that he started having dental pain for the past several days. Patient has not seen a dentist recently. Patient states that he has history of elevated blood pressure recently. Patient has not seen a local physician for elevated blood pressure. Patient is not on any medication for blood pressure. Patient denies any headache. Patient denies any chest pain or shortness of breath. Patient denies abdominal pain. Patient states that has sharp pain localized to left lower gum area. Patient denies any pain radiation. On a scale of 1-10 the pain is a 7. PFSH Past Medical History Arthritis: No Asthma: No Autoimmune Disease: No Anxiety: No Depression: No Heart Rhythm Problems: No Cancer: No Cardiovascular Problems: Yes High Cholesterol: No Chemotherapy: No Chest Pain: No Congestive Heart Failure: No COPD: No Cerebrovascular Accident: No Diabetes: No Diminished Hearing: No Endocrine: No GERD: No Genitourinary: No Hiatal Hernia: No Immune Disorder: No Kidney Stones: No Musculoskeletal: No Neurologic: No Psychiatric: Yes Reproductive: No Respiratory: No Migraines: No Radiation Therapy: No Renal Failure: Yes Schizophrenia: Yes Seizures: No Sickle Cell Disease: No Sleep Apnea: No Thyroid Disease: No Ulcer: No Tetanus Vaccination: < 5 Years Influenza Vaccination: No Past Surgical History Abdominal Surgery: No AICD: No Arteriovenous Shunt: No Cardiac Surgery: No Ear Surgery: No Endocrine Surgery: No Eye Surgery: No Genitourinary Surgery: No Gynecologic Surgery: No Insulin Pump: No Joint Replacement: No Oral Surgery: No Pacemaker: No Thoracic Surgery: No Social History Alcohol Use: No (DENIES) Tobacco Use: Yes (10/29 PPD) Substance Use: No (DENIES) Allergies-Medications (Allergen,Severity, Reaction): Coded Allergies: haloperidol (Unverified Allergy, Severe, Hallucinations, 01/23/18) ibuprofen (Unverified Allergy, Intermediate, Itching, 01/23/18) Reported Meds & Prescriptions Reported Meds & Active Scripts Active Bactrim DS (Sulfamethoxazole-Trimethoprim) 800-160 Mg Tab 1 Tab PO BID 7 Days Review of Systems General / Constitutional: No: Fever Eyes: No: Visual changes HENT: No: Headaches Cardiovascular: No: Chest Pain or Discomfort Respiratory: No: Shortness of Breath Gastrointestinal: No: Abdominal Pain Genitourinary: No: Dysuria Musculoskeletal: No: Pain Skin: No Rash Neurologic: No: Weakness Psychiatric: No: Depression Endocrine: No: Polydipsia Hematologic/Lymphatic: No: Easy Bruising Physical Exam Narrative GENERAL: Well-nourished, well-developed patient. SKIN: Focused skin assessment warm/dry. HEAD: Normocephalic. EYES: No scleral icterus. No injection or drainage. NECK: Supple, trachea midline. No JVD or lymphadenopathy. CARDIOVASCULAR: Regular rate and rhythm without murmurs, gallops, or rubs. RESPIRATORY: Breath sounds equal bilaterally. No accessory muscle use. GASTROINTESTINAL: Abdomen soft, non-tender, nondistended. MUSCULOSKELETAL: No cyanosis, or edema. BACK: Nontender without obvious deformity. No CVA tenderness. Patient had tenderness in palpation left lower gum area posterior aspect of the gum. No soft tissue swelling. No evidence of abscess. Data Data Last Documented VS Vital Signs Date Time Temp Pulse Resp B/P (MAP) Pulse Ox O2 Delivery O2 Flow Rate FiO2 02/08/18 00:30 72 18 151/103 (119) 100 Room Air 02/08/18 00:22 98.4 Orders Orders Acetaminophen (Tylenol) (02/08/18 00:45) Penicillin V Potassium (Veetids) (02/08/18 00:45) MDM Medical Decision Making Medical Screen Exam Complete: Yes Emergency Medical Condition: Yes Differential Diagnosis Differential diagnoses including dental pain, dental abscess, elevated blood pressure, new onset hypertension. Narrative Course 37 years old male with dental pain and elevated blood pressure. Tylenol 650 mg p.o. given. Pen-Vee K 500 mg p.o. given. Diagnosis Primary Impression: Pain, dental Additional Impression: Elevated blood pressure reading Patient Instructions: General Instructions Additional Instructions: Tylenol for pain. Pen-Vee K as directed. Follow-up with a dentist. Follow-up with local physician for blood pressure check. Patient advised to get medication for blood pressure control from local physician. Return if persistent elevated blood pressure. Med/Other Pt SpecificInfo: Prescription(s) given Scripts Penicillin V Potassium (Penicillin V Potassium) 500 Mg Tab 500 MG PO Q6H for Infection, #28 TAB 0 Refills Prov: Grabiel Hassan MD 02/08/18 Disposition: 01 DISCHARGE HOME Condition: Stable Grabiel Hassan MD Feb 08, 2018 00:45
== END 2018-02-08 00:57 | disposition home or self-care (01) ==
LOC: NEPD 00:11
DX: K08.89 Other specified disorders of teeth and supporting structures (principal); R03.0 Elevated blood-pressure reading, without diagnosis of hypertension; F20.9 Schizophrenia, unspecified; F17.210 Nicotine dependence, cigarettes, uncomplicated; Z88.6 Allergy status to analgesic agent
CPT/HCPCS: 99283

== ENCOUNTER 2018-02-15 21:30 | Emergency (ER) | payer SELFPAY ==
[~2018-02-15] VITALS: Ht 170.2 cm; Wt 62.0 kg
[~2018-02-15 21:30] MED LIST changes: +PENI500T PO
[2018-02-15 21:47] VITALS: BP 154/102; PULSE 73; RESP 16; TEMP 98.7; O2SAT 100
--- NOTE | 2018-02-15 22:01 | PD ---
HPI Chief Complaint: Psychiatric Symptoms Time Seen by Provider: 21:39 Travel History International Travel<30 days: No Contact w/Intl Traveler<30days: No Traveled to known affect area: No History of Present Illness HPI The patient is a 37 year old male who presents to the [facility] emergency department with a history of requesting evaluation for a multiple health crisis. The patient reports that he is trying to get back home to his mother in [place]. He reports that while traveling any time he comes in contact with the police they pull out they are gone and attempt to shoot them. He reports that he "feels like my life is in danger". The patient reports that he still angry throughout the day today. He reports that he has chest pain. He reports that the pain is in the center of his chest and a tightening sensation. He denies having any shortness of breath, radiation of pain, diaphoresis, nausea, or vomiting. The patient reports that he is concerned that he may end up harming someone due to the anger he is experiencing. The patient ports that the only psychiatric diagnosis that he is been given in the past with hyperactivity in childhood. He does however report that in the past she has been on Zoloft which is helped stabilize his mood. On review of systems otherwise, the patient denies having any known recent fevers, cough or congestion, neck pain, abdominal pain, diarrhea, urinary symptoms, or neurologic symptoms. [facility] Past Medical History Narrative Medical The patient's past medical history is significant for attention deficit hyperactivity disorder. Arthritis: No Asthma: No Autoimmune Disease: No Anxiety: No Depression: No Heart Rhythm Problems: No Cancer: No Cardiovascular Problems: Yes High Cholesterol: No Chemotherapy: No Chest Pain: No Congestive Heart Failure: No COPD: No Cerebrovascular Accident: No Diabetes: No Diminished Hearing: No Endocrine: No GERD: No Genitourinary: No Hiatal Hernia: No Immune Disorder: No Kidney Stones: No Musculoskeletal: No Neurologic: No Psychiatric: Yes Reproductive: No Respiratory: No Migraines: No Radiation Therapy: No Renal Failure: Yes Schizophrenia: Yes Seizures: No Sickle Cell Disease: No Sleep Apnea: No Thyroid Disease: No Ulcer: No Past Surgical History Narrative Surgical The patient's past surgical history is reportedly none Abdominal Surgery: No AICD: No Arteriovenous Shunt: No Cardiac Surgery: No Ear Surgery: No Endocrine Surgery: No Eye Surgery: No Genitourinary Surgery: No Gynecologic Surgery: No Insulin Pump: No Joint Replacement: No Oral Surgery: No Pacemaker: No Thoracic Surgery: No Social History Alcohol Use: No (DENIES) Tobacco Use: Yes (5 cigarettes per day.) Substance Use: Yes (Marijuana) Allergies-Medications (Allergen,Severity, Reaction): Coded Allergies: haloperidol (Unverified Allergy, Severe, Hallucinations, 02/15/18) ibuprofen (Unverified Allergy, Intermediate, Itching, 02/15/18) Reported Meds & Prescriptions Reported Meds & Active Scripts Active No Active Prescriptions or Reported Medications Review of Systems Except as stated in HPI: all other systems reviewed are Neg General / Constitutional: No: Fever Eyes: No: Visual changes HENT: No: Headaches Cardiovascular: Positive: Chest Pain or Discomfort, No: Dyspnea on exertion Respiratory: No: Shortness of Breath Gastrointestinal: No: Nausea, Vomiting, Diarrhea, Abdominal Pain Genitourinary: No: Dysuria Musculoskeletal: No: Pain Skin: No Rash Neurologic: No: Weakness Psychiatric: Positive: Disorder of Thought, Homicidal Ideation, No: Depression , Suicidal Ideations Endocrine: No: Polydipsia Hematologic/Lymphatic: No: Easy Bruising Physical Exam Narrative General: The patient is a well-developed well-nourished male in no acute distress. The patient is having difficulty tracking the conversation at hand. The patient perseverates on local police officers trying to harm him. Head and Neck exam: Head is normocephalic atraumatic. Eyes: EOMI, pupils are equal round and reactive to light. Nose: Midline septum with pink mucous membranes Mouth: Dentition unremarkable. Moist mucus membranes. Posterior oropharynx is not erythematous. No tonsillar hypertrophy. Uvula midline. Airway patent. Neck: No palpable lymphadenopathy. No nuchal rigidity. No thyromegaly. Cardiovascular: Regular rate and rhythm without murmurs, gallops, or rubs. No pulse deficit to the extremities on simultaneous auscultation and palpation of his radial artery. Lungs: Clear to auscultation bilaterally. No wheezes, rhonchi, or rales. Abdomen: Soft, without tenderness to palpation in all 4 quadrants of the abdomen. No guarding, rebound, or rigidity. Normal bowel sounds are audible. No tenderness on palpation of McBurney's point. Extremities: No clubbing, cyanosis, or edema. 2+ pulses in all 4 extremities. No calf tenderness on palpation. Back: No spinous process tenderness to palpation. No costovertebral angle tenderness to palpation. Neurologic Exam: Grossly nonfocal. Skin Exam: No rash noted. Intact skin that is warm and dry. Data Data Last Documented VS Vital Signs Date Time Temp Pulse Resp B/P (MAP) Pulse Ox O2 Delivery O2 Flow Rate FiO2 02/15/18 21:47 98.7 73 16 154/102 (119) 100 Orders Orders Electrocardiogram (02/15/18 21:41) Complete Blood Count With Diff (02/15/18 21:41) Comprehensive Metabolic Panel (02/15/18 21:41) Creatine Kinase (Cpk) (02/15/18 21:41) Ckmb (Isoenzyme) Profile (02/15/18 21:41) Troponin I (02/15/18 21:41) Prothrombin Time / Inr (Pt) (02/15/18 21:41) Act Partial Throm Time (Ptt) (02/15/18 21:41) Lipase (02/15/18 21:41) Urinalysis - C+S If Indicated (02/15/18 21:41) Thyroid Stimulating Hormone (02/15/18 21:41) Chest, Single Ap (02/15/18 21:41) Iv Access Insert/Monitor (02/15/18 21:41) Ecg Monitoring (02/15/18 21:41) Oximetry (02/15/18 21:41) Psych Screen (02/15/18 21:41) Drug Screen, Random Urine (02/15/18 21:41) Alcohol (Ethanol) (02/15/18 21:41) CKMB (02/15/18 22:05) CKMB% (02/15/18 22:05) Sodium Chlor 0.9% 1000 Ml Inj (Ns 1000 M (02/15/18 23:15) Acetaminophen (Tylenol) (02/15/18 23:45) Oral Rehydration (02/15/18 23:43) Electrocardiogram (02/16/18 00:47) Troponin I (02/16/18 00:47) Labs Laboratory Tests Test 02/15/18 22:05 02/16/18 01:04 White Blood Count 6.3 TH/MM3 Red Blood Count 3.75 MIL/MM3 Hemoglobin 11.2 GM/DL Hematocrit 32.9 % Mean Corpuscular Volume 87.8 FL Mean Corpuscular Hemoglobin 29.9 PG Mean Corpuscular Hemoglobin Concent 34.1 % Red Cell Distribution Width 13.6 % Platelet Count 273 TH/MM3 Mean Platelet Volume 7.6 FL Neutrophils (%) (Auto) 53.1 % Lymphocytes (%) (Auto) 35.8 % Monocytes (%) (Auto) 7.9 % Eosinophils (%) (Auto) 2.5 % Basophils (%) (Auto) 0.7 % Neutrophils # (Auto) 3.4 TH/MM3 Lymphocytes # (Auto) 2.3 TH/MM3 Monocytes # (Auto) 0.5 TH/MM3 Eosinophils # (Auto) 0.2 TH/MM3 Basophils # (Auto) 0.0 TH/MM3 CBC Comment DIFF FINAL Differential Comment Prothrombin Time 10.4 SEC Prothromb Time International Ratio 1.0 RATIO Activated Partial Thromboplast Time 25.9 SEC Blood Urea Nitrogen 14 MG/DL Creatinine 0.88 MG/DL Random Glucose 69 MG/DL Total Protein 6.8 GM/DL Albumin 3.7 GM/DL Calcium Level 8.8 MG/DL Alkaline Phosphatase 77 U/L Aspartate Amino Transf (AST/SGOT) 46 U/L Alanine Aminotransferase (ALT/SGPT) 41 U/L Total Bilirubin 0.3 MG/DL Sodium Level 141 MEQ/L Potassium Level 3.7 MEQ/L Chloride Level 108 MEQ/L Carbon Dioxide Level 24.8 MEQ/L Anion Gap 8 MEQ/L Estimat Glomerular Filtration Rate 119 ML/MIN Total Creatine Kinase 1131 U/L Creatine Kinase MB 4.7 NG/ML Creatine Kinase MB % 0.4 % Troponin I LESS THAN 0.02 NG/ML LESS THAN 0.02 NG/ML Lipase 283 U/L Thyroid Stimulating Hormone 3rd Gen 1.670 uIU/ML Ethyl Alcohol Level LESS THAN 3 MG/DL MDM Medical Decision Making Medical Screen Exam Complete: Yes Emergency Medical Condition: Yes Medical Record Reviewed: Yes Differential Diagnosis Acute psychosis, versus decompensated schizophrenia, versus acute coronary syndrome, versus anxiety disorder Narrative Course During the course of the patient's emergency department visit, the patient's history, examination, and differential diagnosis were reviewed with the patient. The patient was placed on a monitor and storage bin tender with oximetry and frequent blood pressure monitoring. The patient had IV access obtained and blood work sent for analysis. The patient had an EKG done on arrival. The patient's EKG reveals a sinus rhythm heart rate is 67, QRS duration 94 ms, QTC 386 ms. The patient has voltage criteria for left ventricular hypertrophy. No acute ST segment elevation is noted. The patient was initially provided normal saline 1 L IV fluid bolus, Tylenol for pain. The patient's laboratory studies were reviewed and remarkable for CBC reveals a white count of 11.2, hemoglobin 273, normal differential. CMP is remarkable for chloride of 108, glucose 69, AST 46, CPK 1131 with a normal MB percent of 0.4, lipase 283, TSH 1.67, troponin I less than 0.02. PT PTT are within normal limits, alcohol level less than 3 Radiology studies were reviewed and remarkable for a chest x-ray that shows possible infiltrate at the left lung base. This is likely related to atelectasis as the patient has no other signs or symptoms to suggest pneumonia. Repeat EKG 3 hours after the initial one showed no acute changes. Repeat troponin continued to be less than 0.02. The patient has been medically cleared for evaluation by the psychiatric screener. A Peck act was written. The patient was provided continued p.o. hydration which was tolerating well. Diagnosis Primary Impression: Psychosis Qualified Codes: F29 - Unspecified psychosis not due to a substance or known physiological condition Scripts No Active Prescriptions or Reported Meds Jaci Hodges MD Feb 15, 2018 22:01
--- NOTE | 2018-02-15 22:11 | RADRPT ---
EXAM DATE/TIME: 02/15/2018 21:51 [place] COMPARISON: No previous studies available for comparison. INDICATIONS : Chest pain. MEDICAL HISTORY : None. SURGICAL HISTORY : None. ENCOUNTER: Initial ACUITY: 1 day PAIN SCORE: 10/10 LOCATION: Bilateral chest FINDINGS: Early/mild infiltrates suspected in the left lung base, probably mostly the lower lobe. Lungs otherwi se appear clear. No pleural effusion seen. No pneumothorax. Heart size stable, within normal limits. CONCLUSION: Suspected early or mild left base pneumonia in the proper clinical setting. Marko Negron MD on February 15, 2018 at 22:08 Board Certified Radiologist. This report was verified electronically.
[2018-02-15 22:21] LABS: AUTOMATED NEUTROPHIL # 3.4 TH/MM3 (1.8-7.7); BASOPHIL % 0.7 % (0.0-2.0); EOSINOPHIL # 0.2 TH/MM3 (0-0.4); EOSINOPHIL % 2.5 % (0.0-4.0); HEMATOCRIT 32.9 % (39.0-51.0); HEMOGLOBIN 11.2 GM/DL (13.0-17.0); LYMPH % 35.8 % (9.0-44.0); LYMPHOCYTE # 2.3 TH/MM3 (1.0-4.8); MEAN CELL VOLUME 87.8 FL (80.0-100.0); MEAN CORPUSCULAR HEMOGLOBIN 29.9 PG (27.0-34.0); MEAN CORPUSCULAR HGB CONC 34.1 % (32.0-36.0); MEAN PLATELET VOLUME 7.6 FL (7.0-11.0); MONO % 7.9 % (0.0-8.0); MONOCYTE # 0.5 TH/MM3 (0-0.9); NEUT % 53.1 % (16.0-70.0); PLATELET COUNT 273 TH/MM3 (150-450); RED BLOOD COUNT 3.75 MIL/MM3 (4.50-5.90); RED CELL DISTRIBUTION WIDTH 13.6 % (11.6-17.2); WHITE BLOOD COUNT 6.3 TH/MM3 (4.0-11.0)
[2018-02-15 22:26] LABS: PROTHROMBIN TIME - PATIENT 10.4 SEC (9.8-11.6)
[2018-02-15 22:34] LABS: ALBUMIN 3.7 GM/DL (3.4-5.0); AST (GOT) 46 U/L (15-37); BICARBONATE 24.8 MEQ/L (21.0-32.0); BLOOD UREA NITROGEN 14 MG/DL (7-18); CALCIUM 8.8 MG/DL (8.5-10.1); CHLORIDE 108 MEQ/L (98-107); CREATININE 0.88 MG/DL (0.60-1.30); GLOMERULAR FILTRATION RATE 119 ML/MIN (>89); GLUCOSE,RANDOM 69 MG/DL (74-106); SODIUM (NA) 141 MEQ/L (136-145)
[2018-02-15 22:35] LABS: ALT (GPT) 41 U/L (12-78)
[2018-02-15 22:49] LABS: ALKALINE PHOSPHATASE 77 U/L (45-117); TOTAL BILIRUBIN ADULT 0.3 MG/DL (0.2-1.0); TOTAL PROTEIN 6.8 GM/DL (6.4-8.2); TROPONIN I LESS THAN 0.02 NG/ML (0.02-0.05)
[2018-02-15] MEDS ORDERED: SODIUM CHLOR 0.9% 1000 ML INJ 1,000 ML IV ONE (23:15)
[2018-02-15] MEDS ORDERED: ACETAMINOPHEN 325 MG TAB PO ONE (23:45)
[2018-02-16 04:25] LABS: BACTERIA, URINE RARE /hpf; BILIRUBIN, URINE NEG (NEG); BLOOD, URINE NEG (NEG); GLUCOSE,URINE NEG (NEG); KETONE, URINE NEG (NEG); MUCUS URINE FEW /lpf (OCC); NITRITE,URINE NEG (NEG); URINE COLOR LIGHT-YELLOW (YELLW/STRAW); URINE LEUKOCYTE ESTERASE NEG (NEG)
--- NOTE | 2018-02-16 05:22 | EKG ---
Date Performed: 02/16/2018 Time Performed: 00:59:51 PTAGE: 37 years EKG: Sinus rhythm MINIMAL VOLTAGE CRITERIA FOR LVH, CONSIDER NORMAL VARIANT T-WAVE ABNORMALITY, CONSIDER ANTERIOR ISCH EMIA ABNORMAL ECG PREVIOUS TRACING : 02/15/2018 21.47 Compared to previous tracing, anterior T wave changes are n ow evident. DOCTOR: Naman Donis Interpretating Date/Time 02/16/2018 05:21:52
[2018-02-16 07:50] VITALS: BP 148/97; PULSE 74; RESP 16; O2SAT 99
--- NOTE | 2018-02-16 08:25 | PD ---
Physical Exam Time Seen by Provider: 08:[address] Falk has evaluated patient, lifted Peck act and cleared the patient for discharge. Data Data Last Documented VS Vital Signs Date Time Temp Pulse Resp B/P (MAP) Pulse Ox O2 Delivery O2 Flow Rate FiO2 02/15/18 21:47 98.7 73 16 154/102 (119) 100 Orders Orders Electrocardiogram (02/15/18 21:41) Complete Blood Count With Diff (02/15/18 21:41) Comprehensive Metabolic Panel (02/15/18 21:41) Creatine Kinase (Cpk) (02/15/18 21:41) Ckmb (Isoenzyme) Profile (02/15/18 21:41) Troponin I (02/15/18 21:41) Prothrombin Time / Inr (Pt) (02/15/18 21:41) Act Partial Throm Time (Ptt) (02/15/18 21:41) Lipase (02/15/18 21:41) Urinalysis - C+S If Indicated (02/15/18 21:41) Thyroid Stimulating Hormone (02/15/18 21:41) Chest, Single Ap (02/15/18 21:41) Iv Access Insert/Monitor (02/15/18 21:41) Ecg Monitoring (02/15/18 21:41) Oximetry (02/15/18 21:41) Psych Screen (02/15/18 21:41) Drug Screen, Random Urine (02/15/18 21:41) Alcohol (Ethanol) (02/15/18 21:41) CKMB (02/15/18 22:05) CKMB% (02/15/18 22:05) Sodium Chlor 0.9% 1000 Ml Inj (Ns 1000 M (02/15/18 23:15) Acetaminophen (Tylenol) (02/15/18 23:45) Oral Rehydration (02/15/18 23:43) Electrocardiogram (02/16/18 00:47) Troponin I (02/16/18 00:47) Labs Laboratory Tests Test 02/15/18 22:05 02/16/18 01:04 02/16/18 04:00 White Blood Count 6.3 TH/MM3 Red Blood Count 3.75 MIL/MM3 Hemoglobin 11.2 GM/DL Hematocrit 32.9 % Mean Corpuscular Volume 87.8 FL Mean Corpuscular Hemoglobin 29.9 PG Mean Corpuscular Hemoglobin Concent 34.1 % Red Cell Distribution Width 13.6 % Platelet Count 273 TH/MM3 Mean Platelet Volume 7.6 FL Neutrophils (%) (Auto) 53.1 % Lymphocytes (%) (Auto) 35.8 % Monocytes (%) (Auto) 7.9 % Eosinophils (%) (Auto) 2.5 % Basophils (%) (Auto) 0.7 % Neutrophils # (Auto) 3.4 TH/MM3 Lymphocytes # (Auto) 2.3 TH/MM3 Monocytes # (Auto) 0.5 TH/MM3 Eosinophils # (Auto) 0.2 TH/MM3 Basophils # (Auto) 0.0 TH/MM3 CBC Comment DIFF FINAL Differential Comment Prothrombin Time 10.4 SEC Prothromb Time International Ratio 1.0 RATIO Activated Partial Thromboplast Time 25.9 SEC Blood Urea Nitrogen 14 MG/DL Creatinine 0.88 MG/DL Random Glucose 69 MG/DL Total Protein 6.8 GM/DL Albumin 3.7 GM/DL Calcium Level 8.8 MG/DL Alkaline Phosphatase 77 U/L Aspartate Amino Transf (AST/SGOT) 46 U/L Alanine Aminotransferase (ALT/SGPT) 41 U/L Total Bilirubin 0.3 MG/DL Sodium Level 141 MEQ/L Potassium Level 3.7 MEQ/L Chloride Level 108 MEQ/L Carbon Dioxide Level 24.8 MEQ/L Anion Gap 8 MEQ/L Estimat Glomerular Filtration Rate 119 ML/MIN Total Creatine Kinase 1131 U/L Creatine Kinase MB 4.7 NG/ML Creatine Kinase MB % 0.4 % Troponin I LESS THAN 0.02 NG/ML LESS THAN 0.02 NG/ML Lipase 283 U/L Thyroid Stimulating Hormone 3rd Gen 1.670 uIU/ML Ethyl Alcohol Level LESS THAN 3 MG/DL Urine Color LIGHT-YELLOW Urine Turbidity CLEAR Urine pH 6.0 Urine Specific [place] 1.019 Urine Protein NEG mg/dL Urine Glucose (UA) NEG mg/dL Urine Ketones NEG mg/dL Urine Occult Blood NEG Urine Nitrite NEG Urine Bilirubin NEG Urine Urobilinogen LESS THAN 2.0 MG/DL Urine Leukocyte Esterase NEG Urine RBC LESS THAN 1 /hpf Urine WBC LESS THAN 1 /hpf Urine Bacteria RARE /hpf Urine Mucus FEW /lpf Microscopic Urinalysis Comment CULT NOT INDICATED Urine Opiates Screen NEG Urine Barbiturates Screen NEG Urine Amphetamines Screen NEG Urine Benzodiazepines Screen NEG Urine Cocaine Screen NEG Urine Cannabinoids Screen POS MDM Supervised Visit with LEONEL: No Narrative Course Dr. Falk has evaluated patient, lifted Peck judy and cleared the patient for discharge. Patient contracts safety. Denies suicidal or homicidal ideations. Patient will be provided community resource packet to [facility] for follow-up. Has friends and family for support. Patient was medically cleared by alternate provider prior to psych screening. Patient has been evaluated by psychiatry and and is now cleared for discharge. Diagnosis Primary Impression: Psychosis Qualified Codes: F29 - Unspecified psychosis not due to a substance or known physiological condition Referrals: [facility] (Out patient) [facility] Primary Care Physician Psychiatrist Javier [facility] Patient Instructions: Brief Psychotic Disorder (ED), General Instructions Additional Instruction: Contract safety to your self and others Follow-up with psychiatry Follow-up with primary care provider Follow-up with Fracisco Baig Return to the emergency department immediately with worsening of symptoms Med/Other Pt SpecificInfo: No Change to Meds, No Meds Exist/No RX given Scripts No Active Prescriptions or Reported Meds Disposition: 01 DISCHARGE HOME Condition: Stable Stephanie Kan Feb 16, 2018 08:25
--- NOTE | 2018-02-16 11:40 | PD.PSY.CON ---
Provisional Diagnosis Admission Date [place] I. Substance-induced psychotic disorder, cannabis use disorder, history of malignant [place] II. Antisocial personality disorder History of Present Illness Service Psychiatry Consult Requested By ER Reason for Consult Under Peck act Primary Care Physician No Primary Care Physician HPI The patient was seen this morning at 7:30 AM The patient is a 37 year-old -Turk[place] man, homeless, unemployed, single , with psychiatric history of ADHD, antisocial personality disorder, cannabis use disorder, malingering, poor impulse control, aggressive behavior, no previous psychiatric hospitalizations, he denies previous suicidal attempts, no significant medical history, who presents to the [facility] emergency department with a history of requesting evaluation for a multiple health crisis. The patient reports that he is trying to get back home to his mother in [place]. He reports that while traveling any time he comes in contact with the police they pull out they are gone and attempt to shoot them. He reports that he "feels like my life is in danger". The patient reports that he still angry throughout the day today. He reports that he has chest pain. He reports that the pain is in the center of his chest and a tightening sensation. He denies having any shortness of breath, radiation of pain, diaphoresis, nausea, or vomiting. The patient reports that he is concerned that he may end up harming someone due to the anger he is experiencing. The patient ports that the only psychiatric diagnosis that he is been given in the past with hyperactivity in childhood. He does however report that in the past she has been on Zoloft which is helped stabilize his mood. On review of systems otherwise, the patient denies having any known recent fevers, cough or congestion, neck pain, abdominal pain, diarrhea, urinary symptoms, or neurologic symptoms. On psychiatric evaluation today I find a patient who is very demanding, entitled, requesting to be discharged. He is also requesting to have a bathroom for himself and breakfast as soon as possible. When brain wave technician tried to explain that he has to wait his turn in the bed patient became very verbally hostile and disrespectful. The patient denies depressive symptoms, he denies anxiety, he says that he never had any psychiatric problem. He reports that he has been using cannabis every day. He denies suicidal and homicidal ideation at this moment, denies visual and auditory hallucinations Review of Systems Constitutional: DENIES: Diaphoretic episodes, Fatigue, Fever, Weight gain, Weight loss, Chills, Dizziness, Change in appetite, Night Sweats Endocrine: DENIES: Heat/cold intolerance, Polydipsia, Polyuria, Polyphagia Ears, nose, mouth, throat: DENIES: Tinnitus, Hearing loss, Vertigo, Nasal discharge, Oral lesions, Throat pain, Hoarseness, Ear Pain, Running Nose, Epistaxis, Sinus Pain, Toothache, Odynophagia Respiratory: DENIES: Apneas, Cough, Snoring, Wheezing, Hemoptysis, Sputum production, Shortness of breath Musculoskeletal: DENIES: Joint pain, Muscle aches, Stiffness, Joint Swelling, Back pain, Neck pain Integumentary: DENIES: Abnormal pigmentation, Nail changes, Pruritus, Rash Hematologic/lymphatic: DENIES: Bruising, Lymphadenopathy Immunologic/allergic: DENIES: Eczema, Urticaria Neurologic: DENIES: Abnormal gait, Headache, Localized weakness, Paresthesias, Seizures, Speech Problems, Tremor, Poor Balance Psychiatric: DENIES: Anxiety, Confusion, Mood changes, Depression, Hallucinations, Agitation, Suicidal Ideation, Homicidal Ideation, Delusions Past Family Social History Coded Allergies: haloperidol (Unverified Allergy, Severe, Hallucinations, 02/15/18) ibuprofen (Unverified Allergy, Intermediate, Itching, 02/15/18) Discontinued Scripts Penicillin V Potassium (Penicillin V Potassium) 500 Mg Tab, 500 MG PO Q6H for Infection, #28 TAB 0 Refills Prov:Grabiel Hassan MD 02/08/18 Sulfamethoxazole-Trimethoprim (Bactrim DS) 800-160 Mg Tab, 1 TAB PO BID for Infection for 7 Days, #14 TAB 0 Refills Prov:Stephanie Kan 01/23/18 Physical Exam Vital Signs Vital Signs Date Time Temp Pulse Resp B/P (MAP) Pulse Ox O2 Delivery O2 Flow Rate FiO2 02/16/18 08:15 02/16/18 07:50 74 16 99 Room Air 02/15/18 21:47 98.7 I/O 02/16/18 02/16/18 02/17/18 08:00 16:00 00:00 Intake Total 1000 ml Balance 1000 ml Lab Results Test 02/15/18 22:05 02/16/18 01:04 02/16/18 04:00 White Blood Count 6.3 TH/MM3 Red Blood Count 3.75 MIL/MM3 Hemoglobin 11.2 GM/DL Hematocrit 32.9 % Mean Corpuscular Volume 87.8 FL Mean Corpuscular Hemoglobin 29.9 PG Mean Corpuscular Hemoglobin Concent 34.1 % Red Cell Distribution Width 13.6 % Platelet Count 273 TH/MM3 Mean Platelet Volume 7.6 FL Neutrophils (%) (Auto) 53.1 % Lymphocytes (%) (Auto) 35.8 % Monocytes (%) (Auto) 7.9 % Eosinophils (%) (Auto) 2.5 % Basophils (%) (Auto) 0.7 % Neutrophils # (Auto) 3.4 TH/MM3 Lymphocytes # (Auto) 2.3 TH/MM3 Monocytes # (Auto) 0.5 TH/MM3 Eosinophils # (Auto) 0.2 TH/MM3 Basophils # (Auto) 0.0 TH/MM3 CBC Comment DIFF FINAL Differential Comment Prothrombin Time 10.4 SEC Prothromb Time International Ratio 1.0 RATIO Activated Partial Thromboplast Time 25.9 SEC Blood Urea Nitrogen 14 MG/DL Creatinine 0.88 MG/DL Random Glucose 69 MG/DL Total Protein 6.8 GM/DL Albumin 3.7 GM/DL Calcium Level 8.8 MG/DL Alkaline Phosphatase 77 U/L Aspartate Amino Transf (AST/SGOT) 46 U/L Alanine Aminotransferase (ALT/SGPT) 41 U/L Total Bilirubin 0.3 MG/DL Sodium Level 141 MEQ/L Potassium Level 3.7 MEQ/L Chloride Level 108 MEQ/L Carbon Dioxide Level 24.8 MEQ/L Anion Gap 8 MEQ/L Estimat Glomerular Filtration Rate 119 ML/MIN Total Creatine Kinase 1131 U/L Creatine Kinase MB 4.7 NG/ML Creatine Kinase MB % 0.4 % Troponin I LESS THAN 0.02 NG/ML LESS THAN 0.02 NG/ML Lipase 283 U/L Thyroid Stimulating Hormone 3rd Gen 1.670 uIU/ML Ethyl Alcohol Level LESS THAN 3 MG/DL Urine Color LIGHT-YELLOW Urine Turbidity CLEAR Urine pH 6.0 Urine Specific [place] 1.019 Urine Protein NEG mg/dL Urine Glucose (UA) NEG mg/dL Urine Ketones NEG mg/dL Urine Occult Blood NEG Urine Nitrite NEG Urine Bilirubin NEG Urine Urobilinogen LESS THAN 2.0 MG/DL Urine Leukocyte Esterase NEG Urine RBC LESS THAN 1 /hpf Urine WBC LESS THAN 1 /hpf Urine Bacteria RARE /hpf Urine Mucus FEW /lpf Microscopic Urinalysis Comment CULT NOT INDICATED Urine Opiates Screen NEG Urine Barbiturates Screen NEG Urine Amphetamines Screen NEG Urine Benzodiazepines Screen NEG Urine Cocaine Screen NEG Urine Cannabinoids Screen POS Mental Status Examination Appearance: Appropriate Consciousness: Alert Orientation: x4 Motor Activity: Normal gait Speech: Unremarkable Language: Adequate Fund of Knowledge: Adequate Attention and Concentration: Adequate Memory: Unremarkable Mood: Angry Affect: Irritable Thought Process & Associations: Intact Thought Content: Appropriate Hallucination Type: None Delusion Type: None Suicidal Ideation: No Suicidal Plan: No Suicidal Intention: No Homicidal Ideation: No Homicidal Plan: No Homicidal Intention: No Insight: Adequate Judgment: Adequate Assessment & Plan Problem List: (1) Antisocial personality disorder ICD Codes: F60.2 - Antisocial personality disorder Assessment & Plan: On psychiatric evaluation today I find a patient that is irritable, demanding attention, very end-tidal, verbally hostile with staff, requesting to be discharged, a private bathroom and also breakfast as soon as possible. Patient was the escalated verbally. He denies depressive symptoms, denies anxiety, denies suicidal enemas ideation, denies visual and auditory hallucinations. Patient confirms the use of cannabis and possible synthetic cannabis. Patient does not have any neuropsychiatric symptoms that require immediate psychiatric intervention, he rather have a very obvious antisocial behavior that is most probably secondary to an underlying character/temperament pathology. He does not meet criteria for involuntary psychiatric admission. Brief supportive psychotherapy and psychoeducation provided. Peck act will be lifted. Assessment & Plan Estimated LOS: Huber Leos MD Feb 16, 2018 11:40
== END 2018-02-16 08:47 | disposition home or self-care (01) ==
LOC: NEPE 21:30 → NEPJ 02-16 08:47
DX: F29 Unspecified psychosis not due to a substance or known physiological condition (principal); R94.31 Abnormal electrocardiogram [ECG] [EKG]; F20.9 Schizophrenia, unspecified; F90.9 Attention-deficit hyperactivity disorder, unspecified type; Z72.0 Tobacco use
CPT/HCPCS: 71045; 80053; 80307; 81001; 82550; 82552; 83690; 84443; 84484; 85025; 85610; 85730; 93005; 96360; 99285; J7030

== ENCOUNTER 2018-02-16 23:52 | Emergency (ER) | payer OTHER ==
[~2018-02-16] VITALS: Ht 172.7 cm; Wt 80.0 kg
[2018-02-17] MEDS ORDERED: OLANZapine IM 10 MG VIAL IM ONE
[2018-02-17 00:25] VITALS: BP 145/87; PULSE 56; RESP 17; O2SAT 99
[2018-02-17 03:10] VITALS: BP 162/87; PULSE 58; RESP 18
--- NOTE | 2018-02-17 04:07 | PD ---
HPI Chief Complaint: Psychiatric Symptoms Time Seen by Provider: 00:49 Travel History International Travel<30 days: No Contact w/Intl Traveler<30days: No Traveled to known affect area: No History of Present Illness HPI 37-year-old male presents emergency department as a transfer from [facility] under Peck act. Patient offers little history. Tells me he wants to hurt himself. He tells me I am not allowed to touch him or assess him. Is uncooperative and therefore history is limited. PFSH Past Medical History Hx Anticoagulant Therapy: No ADHD: Yes Arthritis: No Asthma: No Autoimmune Disease: No Anxiety: No Depression: Yes Heart Rhythm Problems: No Cancer: No Cardiovascular Problems: No High Cholesterol: No Chemotherapy: No Chest Pain: No Congestive Heart Failure: No COPD: No Cerebrovascular Accident: No Developmental Delay: No Diabetes: No Diminished Hearing: No Endocrine: No GERD: No Genitourinary: No Hiatal Hernia: No Immune Disorder: No Kidney Stones: No Musculoskeletal: No Neurologic: No Psychiatric: Yes Reproductive: No Respiratory: No Immunizations Current: Yes Migraines: No Radiation Therapy: No Renal Failure: Yes Schizophrenia: Yes Seizures: No Sickle Cell Disease: No Sleep Apnea: No Thyroid Disease: No Ulcer: No Past Surgical History Abdominal Surgery: No AICD: No Arteriovenous Shunt: No Cardiac Surgery: No Ear Surgery: No Endocrine Surgery: No Eye Surgery: No Genitourinary Surgery: No Gynecologic Surgery: No Insulin Pump: No Joint Replacement: No Oral Surgery: No Pacemaker: No Thoracic Surgery: No Social History Alcohol Use: No (DENIES) Tobacco Use: Yes (5 cigarettes per day.) Substance Use: Yes (DENIED. ) Allergies-Medications (Allergen,Severity, Reaction): Coded Allergies: haloperidol (Unverified Allergy, Severe, Hallucinations, 02/17/18) ibuprofen (Unverified Allergy, Intermediate, Itching, 02/17/18) Reported Meds & Prescriptions Reported Meds & Active Scripts Active No Active Prescriptions or Reported Medications Review of Systems ROS Limitations: Uncooperative Except as stated in HPI: all other systems reviewed are Neg Physical Exam Exam Limitations: Uncooperative Narrative Patient appears well-nourished and nontoxic. He is without distress. He is speaking clearly. He moves all extremities. He is not using any accessory muscles with breathing. He refuses to allow me to further assess him therefore physical exam is limited. Data Data Last Documented VS Vital Signs Date Time Temp Pulse Resp B/P (MAP) Pulse Ox O2 Delivery O2 Flow Rate FiO2 02/17/18 03:10 58 18 162/87 (112) Room Air 02/17/18 00:25 99 Orders Orders Diphenhydramine Inj (Benadryl Inj) (02/17/18 00:00) Olanzapine Inj (Zyprexa Inj) (02/17/18 00:00) Lorazepam Inj (Ativan Inj) (02/17/18 00:00) Psych Screen (02/17/18 00:12) MDM Medical Decision Making Medical Screen Exam Complete: Yes Emergency Medical Condition: Yes Medical Record Reviewed: Yes Differential Diagnosis Mood disorder versus personality disorder versus adjustment reaction disorder Narrative Course 37-year-old male presents emergency department under Peck act as a transfer from [facility]. Patient appears nontoxic. He appears without distress. Physical exam is very limited due to patient's refusal. Patient has already been medically cleared. With no acute needs he will remain medically cleared to undergo psychiatric screening for further evaluation and disposition. Mental health screening discussed with the patient. Psychiatric screen ordered. Diagnosis Primary Impression: Adjustment disorder with depressed mood Scripts No Active Prescriptions or Reported Meds Condition: Stable Janie Oliveira Feb 17, 2018 04:07
[2018-02-17 11:03] VITALS: BP 147/68; PULSE 62; RESP 16; TEMP 97.6; O2SAT 99
[2018-02-17] MEDS ORDERED: diphenhydrAMINE HCL 50 MG/ML VIAL ONE (12:23)
[2018-02-17] MEDS ORDERED: ZIPRASIDONE MESYLATE 20 MG VIAL IM ONE ×3 (12:24→14:00)
[2018-02-17] MEDS ORDERED: LORazepam 2 MG/ML VIAL ONE (12:34)
[2018-02-17] MEDS ORDERED: diphenhydrAMINE HCL 50 MG/ML VIAL IM ONE ×3 (12:37→14:00)
[2018-02-17] MEDS ORDERED: LORazepam 2 MG/ML VIAL IM ONE ×3 (12:38→13:45)
--- NOTE | 2018-02-17 15:15 | PD ---
Physical Exam Time Seen by Provider: 15:14 Narrative Patient was transferred to [facility] for continued care and evaluation. Data Data Last Documented VS Vital Signs Date Time Temp Pulse Resp B/P (MAP) Pulse Ox O2 Delivery O2 Flow Rate FiO2 02/17/18 14:45 02/17/18 11:03 97.6 62 16 99 Room Air Orders Orders Diphenhydramine Inj (Benadryl Inj) (02/17/18 00:00) Olanzapine Inj (Zyprexa Inj) (02/17/18 00:00) Lorazepam Inj (Ativan Inj) (02/17/18 00:00) Psych Screen (02/17/18 00:12) Diet Regular Basic (02/17/18 Breakfast) Diet Regular Basic (02/17/18 Lunch) Restraints Violent (02/17/18 11:55) Diphenhydramine Inj (Benadryl Inj) (02/17/18 12:23) Ziprasidone Inj (Geodon Inj) (02/17/18 12:24) Lorazepam Inj (Ativan Inj) (02/17/18 12:34) Lorazepam Inj (Ativan Inj) (02/17/18 12:38) Diphenhydramine Inj (Benadryl Inj) (02/17/18 12:37) Ziprasidone Inj (Geodon Inj) (02/17/18 12:37) Lorazepam Inj (Ativan Inj) (02/17/18 13:45) Ed Discharge Order (02/17/18 15:13) [facility] Supervised Visit with LEONEL: No Narrative Course Patient was transferred to [facility] for continued care and evaluation. Diagnosis Primary Impression: Adjustment disorder with depressed mood Scripts No Active Prescriptions or Reported Meds Disposition: 65 DISC TO PSYCH CARE FACILITY Condition: Stable Stephanie Kan Feb 17, 2018 15:15
--- NOTE | 2018-02-17 17:10 | PD ---
History of Present Illness Chief Complaint: Psychiatric Symptoms Time Seen by Provider: 12:00 Travel History International Travel<30 Days: No Contact w/Intl Traveler<30days: No Known affected area: No Legal Status Legal Status: Peck Act Peck Act Signed By: ED PHYSICIAN AT [facility] History of Present Illness: History of Present Illness HPI 37-year-old male with reported history of schizophrenia who presents emergency department as a transfer from [facility] under Peck act initiated at [facility]. The patient originally presented to that facility ED reporting suicidal ideation. The Peck act alleges disorganized thoughts and behavioral outbursts. His toxicology report at that facility was positive for cannabinoids. Upon arrival to our ED here the patient offered little history to the provider and only informed her that he wanted to hurt himself. He did not allow the provider to examine him. Electronic medical record is reviewed. The patient was evaluated yesterday by Dr. [facility] psychiatrist and he was released. The patient was hostile and threatening when he found out that he would be released from our emergency department and required security to assist with his disposition. Patient has had several admissions to our inpatient psychiatric unit dating back to 2011. Patient on the unit has been uncooperative, restless, agitated, threatening towards staff, refusing to follow basic directions such as wearing clothing on the unit. He has yelled at staff and demanded to have his breakfast brought him immediately. He has been shutting the doors of other patient's room and refusing redirection. Patient became threatening to staff once again and saying that he was going to kill somebody. He was placed in seclusion for safety. He began to bang on the door as well as on the window demanding to have his lunch as well as demanding to know attic what exact time he was going to be taken to [facility]. Despite staff answering his questions multiple times he continued to bang on the door as well as on the window. He then proceeded to smear feces all over the window of his room as well as on the camera. Patient required ETO as well as restraints for his safety. Patient did not appear to be responding to internal stimuli but rather appear to be exhibiting antisocial personality traits and behaviors. PFSH Past Medical History Hx Anticoagulant Therapy: No ADHD: Yes Arthritis: No Asthma: No Autoimmune Disease: No Anxiety: No Depression: Yes Heart Rhythm Problems: No Cancer: No Cardiovascular Problems: No High Cholesterol: No Chemotherapy: No Chest Pain: No Congestive Heart Failure: No COPD: No Cerebrovascular Accident: No Developmental Delay: No Diabetes: No Diminished Hearing: No Endocrine: No GERD: No Genitourinary: No Hiatal Hernia: No Immune Disorder: No Kidney Stones: No Musculoskeletal: No Neurologic: No Psychiatric: Yes Reproductive: No Respiratory: No Immunizations Current: Yes Migraines: No Radiation Therapy: No Renal Failure: Yes Schizophrenia: Yes Seizures: No Sickle Cell Disease: No Sleep Apnea: No Thyroid Disease: No Ulcer: No Past Surgical History Abdominal Surgery: No AICD: No Arteriovenous Shunt: No Cardiac Surgery: No Ear Surgery: No Endocrine Surgery: No Eye Surgery: No Genitourinary Surgery: No Gynecologic Surgery: No Insulin Pump: No Joint Replacement: No Oral Surgery: No Pacemaker: No Thoracic Surgery: No Psychiatric History Psychiatric History Hx Psychiatric Treatment: REPORTS THAT HIS ONLY MENTAL HEALTH DIAGNOSIS IS HYPERACTIVITY. PER MEDICAL RECORDS, ALSO HAS ANTISOCIAL TRAITS AND MALINGING FOR MCC. 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 CRACK COCAINE PER MEDICAL RECORDS Hx of Substance Use Treatment: No Family Psychiatric History Unable to obtain Allergies-Medications (Allergen,Severity, Reaction): Coded Allergies: haloperidol (Unverified Allergy, Severe, Hallucinations, 02/17/18) ibuprofen (Unverified Allergy, Intermediate, Itching, 02/17/18) Reported Meds & Prescriptions Reported Meds & Active Scripts Active No Active Prescriptions or Reported Medications Review of Systems ROS Limitations: Uncooperative Mental Status Examination Appearance: Other (Patient walking around the unit without his shirt and with his pants down exposing part of his buttocks.) Consciousness: Alert Orientation: x4 Motor Activity: Normal gait Speech: Unremarkable, Other (Loud and threatening) Language: Adequate Fund of Knowledge: Adequate Attention and Concentration: Other Memory: Impaired (Unable to evaluate) Mood: Other (Agitated, threatening) Affect: Other (Angry) Thought Process & Associations: Intact, Logical, Goal directed (Concerned with when he will get his lunch and when he will be transferred) Hallucination Type: None Delusion Type: None Suicidal Ideation: No Suicidal Plan: No Suicidal Intention: No Homicidal Ideation: Yes Homicidal Plan: No Homicidal Intention: No Insight: Poor Judgment: Impulsive MDM Medical Decision Making Medical Record Reviewed: Yes Assessment/Plan 37-year-old male with reported history of schizophrenia who presents emergency department as a transfer from [facility] under Peck act initiated at [facility]. The patient originally presented to that facility ED reporting suicidal ideation. The Peck act alleges disorganized thoughts and behavioral outbursts. His toxicology report at that facility was positive for cannabinoids. Upon arrival to our ED here the patient offered little history to the provider and only informed her that he wanted to hurt himself. He did not allow the provider to examine him. Patient remained agitated, threatening, not following redirection. He proceeded to smear feces all over the [place]a as well as a camera in his room. Required ETO as well as restraints for safety. Patient continued to yell very loudly and continued to threaten staff that he would kill us. Patient was accepted at [facility] for continued treatment and was transported there. Orders Orders Diphenhydramine Inj (Benadryl Inj) (02/17/18 00:00) Olanzapine Inj (Zyprexa Inj) (02/17/18 00:00) Lorazepam Inj (Ativan Inj) (02/17/18 00:00) Psych Screen (02/17/18 00:12) Diet Regular Basic (02/17/18 Breakfast) Diet Regular Basic (02/17/18 Lunch) Restraints Violent (02/17/18 11:55) Diphenhydramine Inj (Benadryl Inj) (02/17/18 12:23) Ziprasidone Inj (Geodon Inj) (02/17/18 12:24) Lorazepam Inj (Ativan Inj) (02/17/18 12:34) Lorazepam Inj (Ativan Inj) (02/17/18 12:38) Diphenhydramine Inj (Benadryl Inj) (02/17/18 12:37) Ziprasidone Inj (Geodon Inj) (02/17/18 12:37) Lorazepam Inj (Ativan Inj) (02/17/18 13:45) Ed Discharge Order (02/17/18 15:13) Diet Regular Basic (02/17/18 Dinner) Results Vital Signs Date Time Temp Pulse Resp B/P (MAP) Pulse Ox O2 Delivery O2 Flow Rate FiO2 02/17/18 14:45 02/17/18 11:03 97.6 62 16 147/68 (94) 99 Room Air 02/17/18 03:10 58 18 162/87 (112) Room Air 02/17/18 00:25 56 17 145/87 (106) 99 Room Air Diagnosis Primary Impression: Adjustment disorder with depressed mood Additional Impression: Antisocial personality disorder Departure Forms: Tests/Procedures Patient Instructions: General Instructions Additional Instructions: Follow up as directed per Fracisco Davis. Prescriptions No Active Prescriptions or Reported Meds Disposition: 70 TRANSFER TO OTHER FACILITY Condition: Stable Problem Qualifiers Kristina Urena Feb 17, 2018 17:10
== END 2018-02-17 14:55 ==
LOC: NEPJ 23:52
DX: F43.21 Adjustment disorder with depressed mood (principal); F60.2 Antisocial personality disorder; F17.210 Nicotine dependence, cigarettes, uncomplicated
CPT/HCPCS: 96372; 99285; J1200; J2060; J3486

== ENCOUNTER 2018-03-25 17:16 | Emergency (ER) | payer SELFPAY ==
[~2018-03-25] VITALS: Ht 170.2 cm; Wt 77.0 kg
[2018-03-25 17:30] VITALS: BP 137/64; PULSE 99; RESP 20; TEMP 97.7; O2SAT 100
[2018-03-25] MEDS ORDERED: CYCL10TA PO ×2 (20:32→20:34)
[2018-03-25] MEDS ORDERED: TYLE325T PO ×2 (20:32→20:34)
== END 2018-03-25 18:34 | disposition left against medical advice (07) ==
LOC: NETRI 17:16
DX: M54.9 Dorsalgia, unspecified (principal)
CPT/HCPCS: 99281

== ENCOUNTER 2018-03-25 19:31 | Emergency (ER) | payer SELFPAY ==
[~2018-03-25] VITALS: Ht 175.3 cm; Wt 80.0 kg
[2018-03-25 19:40] VITALS: BP 146/68; PULSE 62; RESP 16; TEMP 97.2; O2SAT 99
[2018-03-25] MEDS ORDERED: TYLE325T PO ×2 (20:32→20:34)
[2018-03-25] MEDS ORDERED: CYCL10TA PO ×2 (20:32→20:34)
--- NOTE | 2018-03-25 20:34 | PD ---
HPI Chief Complaint: Back/ Neck Pain or Injury Time Seen by Provider: 20:26 Travel History International Travel<30 days: No Contact w/Intl Traveler<30days: No Traveled to known affect area: No History of Present Illness HPI 37-year-old male presents the ED for evaluation of 6/10 mid back pain. Onset a few days ago after the patient was lifting some heavy things for work. He denies radiation of the pain, numbness, tingling, weakness, limitations range of motion of the extremity. Pain is described as dull, worsened by certain movements. Denies saddle anesthesia, incontinence. He denies dysuria, hematuria, fever, chills, nausea, vomiting. He is requesting Tylenol for the pain. PFSH Past Medical History Hx Anticoagulant Therapy: No ADHD: Yes Arthritis: No Asthma: No Autoimmune Disease: No Anxiety: No Depression: Yes Heart Rhythm Problems: No Cancer: No Cardiovascular Problems: No High Cholesterol: No Chemotherapy: No Chest Pain: No Congestive Heart Failure: No COPD: No Cerebrovascular Accident: No Developmental Delay: No Diabetes: No Diminished Hearing: No Endocrine: No GERD: No Genitourinary: No Hiatal Hernia: No Immune Disorder: No Kidney Stones: No Musculoskeletal: No Neurologic: No Psychiatric: Yes Reproductive: No Respiratory: No Immunizations Current: Yes Migraines: No Radiation Therapy: No Renal Failure: Yes Schizophrenia: Yes Seizures: No Sickle Cell Disease: No Sleep Apnea: No Thyroid Disease: No Ulcer: No Tetanus Vaccination: < 5 Years Influenza Vaccination: No Past Surgical History Abdominal Surgery: No AICD: No Arteriovenous Shunt: No Cardiac Surgery: No Ear Surgery: No Endocrine Surgery: No Eye Surgery: No Genitourinary Surgery: No Gynecologic Surgery: No Insulin Pump: No Joint Replacement: No Oral Surgery: No Pacemaker: No Thoracic Surgery: No Social History Alcohol Use: No (DENIES) Tobacco Use: Yes (5 cigarettes per day.) Substance Use: Yes (MARIJUANA) Allergies-Medications (Allergen,Severity, Reaction): Coded Allergies: haloperidol (Unverified Allergy, Severe, Hallucinations, 03/25/18) ibuprofen (Unverified Allergy, Intermediate, Itching, 03/25/18) Reported Meds & Prescriptions Reported Meds & Active Scripts Active Flexeril (Cyclobenzaprine HCl) 10 Mg Tab 10 Mg PO TID Tylenol (Acetaminophen) 325 Mg Tab 650 Mg PO Q6H PRN Review of Systems Except as stated in HPI: all other systems reviewed are Neg Physical Exam Narrative GENERAL: Well-nourished, well-developed black male in no acute distress. SKIN: Focused skin assessment warm/dry. HEAD: Normocephalic. EYES: No scleral icterus. No injection or drainage. NECK: Supple, trachea midline. No JVD or lymphadenopathy. CARDIOVASCULAR: Regular rate and rhythm without murmurs, gallops, or rubs. RESPIRATORY: Breath sounds equal bilaterally. No accessory muscle use. GASTROINTESTINAL: Abdomen soft, non-tender, nondistended. MUSCULOSKELETAL: No cyanosis, or edema. Walks with a normal gait. 5/5 strength of bilateral lower extremities. BACK: No obvious deformity. No CVA tenderness. Tenderness to paraspinal musculature in the mid thoracic spine. No midline tenderness to palpation. Data Data Last Documented VS Vital Signs Date Time Temp Pulse Resp B/P (MAP) Pulse Ox O2 Delivery O2 Flow Rate FiO2 03/25/18 19:40 97.2 62 16 146/68 (94) 99 Room Air Orders Orders Acetaminophen (Tylenol) (03/25/18 20:45) Ed Discharge Order (03/25/18 20:39) MDM Medical Decision Making Medical Screen Exam Complete: Yes Emergency Medical Condition: Yes Differential Diagnosis Muscle strain versus muscle spasm versus muscular skeletal pain versus other Narrative Course 37-year-old male presents the ED for evaluation of 5/10 mid back pain. Onset after lifting something heavy a few days ago. No red flag symptoms. No urinary symptoms. Physical exam reveals tenderness to palpation the paraspinal musculature in the mid thoracic spine, exam otherwise unremarkable. Patient requested Tylenol and this was provided. He is also prescribed a short course of Tylenol and muscle relaxants, instructed to return to normal, gentle activity as tolerated, return for worsening symptoms. He indicated understanding of the instructions and is agreeable to the care plan. The patient is stable discharged home. Diagnosis Primary Impression: Musculoskeletal back pain Referrals: Primary Care Physician Additional Instructions: Rest, hydrate. Take pain medications and muscle relaxants as prescribed. Do not drive while taking muscle relaxants as they may cause drowsiness. Resume normal, gentle activities as tolerated. No heavy lifting or overuse for the next few days. A mixture of rest and activity is best for back pain. Follow-up with her primary care provider. Return to the ED for worsening symptoms or any urgent or emergent medical condition. Med/Other Pt SpecificInfo: Prescription(s) given Scripts Cyclobenzaprine (Flexeril) 10 Mg Tab 10 MG PO TID for Muscle Spasm, #6 TAB 0 Refills Prov: Urvashi Vincent DO 03/25/18 Acetaminophen (Tylenol) 325 Mg Tab 650 MG PO Q6H Y for PAIN SCALE 1 TO 10, #12 TAB 0 Refills Prov: Urvashi Vincent DO 03/25/18 Disposition: 01 DISCHARGE HOME Condition: Stable Krystyna Gleason March 25, 2018 20:34
[2018-03-25] MEDS ORDERED: ACETAMINOPHEN 325 MG TAB PO ONE (20:45)
== END 2018-03-25 21:32 | disposition home or self-care (01) ==
LOC: NEPA 19:31
DX: M54.9 Dorsalgia, unspecified (principal)
CPT/HCPCS: 99283

== ENCOUNTER 2018-03-31 21:58 | Emergency (ER) | payer SELFPAY ==
[~2018-03-31 21:58] MED LIST changes: -BACT800T5 PO; +CYCL10TA PO; -PENI500T PO; +TYLE325T PO
== END 2018-03-31 22:00 | disposition left against medical advice (07) ==
LOC: NEDAMB 21:58
DX: R51 Headache (principal)
CPT/HCPCS: 99281